=== PATIENT | female | born 1945 | race Caucasian/White ===

== ENCOUNTER 2023-08-20 06:48 | Day surgery (SDC) | payer MEDICARE, OTHER, SELFPAY ==
[2023-08-20 12:15] VITALS: BP 153/70; BMI 38.9
[2023-08-20] MEDS: TYLENOL 1000 MG PO (15:00)
[2023-08-20 16:51] VITALS: BP 105/49
[2023-08-20 17:00] VITALS: BP 118/54
[2023-08-20 17:15] VITALS: BP 123/56
== END 2023-08-20 17:30 | disposition home or self-care (01) ==
LOC: SDS 06:48
PROVIDERS: ATTENDING PHYSICIAN Orthopaedic Surgery Hand Surgery
DX: M65.332 Trigger finger, left middle finger (principal); M79.89 Other specified soft tissue disorders; Z98.890 Other specified postprocedural states
CPT/HCPCS: 26180; 88304

== ENCOUNTER → 2023-11-23 07:35 | Outpatient (REF) | payer MEDICARE, OTHER, SELFPAY | LOC: EMG 07:35 | PROVIDERS: ATTENDING PHYSICIAN Psychiatry & Neurology Neurology; FAMILY PHYSICIAN Family Medicine | DX: R26.89 Other abnormalities of gait and mobility (principal); G62.9 Polyneuropathy, unspecified | CPT/HCPCS: 95886; 95911 ==

== ENCOUNTER → 2023-12-25 13:28 | Outpatient (REF) | payer MEDICARE, OTHER, SELFPAY | LOC: MRI 13:28 | PROVIDERS: ATTENDING PHYSICIAN Psychiatry & Neurology Neurology; FAMILY PHYSICIAN Family Medicine | DX: R26.89 Other abnormalities of gait and mobility (principal); M48.02 Spinal stenosis, cervical region; R25.1 Tremor, unspecified | CPT/HCPCS: 70553; 72141; A9575 ==

== ENCOUNTER 2024-03-07 08:48 | Day surgery (SDC) | payer MEDICARE, OTHER, SELFPAY ==
--- NOTE | 2024-03-07 18:02 | ITS.CL.CARDI ---
Holter Scanning Technician - Cardioversion
Cardioversion
Procedure Report:
Date of Procedure: 03/07/2024
Procedure: Cardioversion
Indication: Symptomatic atrial fibrillation
Performing Physician: Ariadna Lin DO [facility]
Anticoagulation: Eliquis
Device: Medtronic pacemaker
Technique: The patient was brought to the holding area. Signed informed consent was obtained. A time out was called and performed. The patient was anesthetized by the anesthesia service. Anticoagulation status was reviewed and appropriate. R2 pads
were placed anteriorly and posteriorly. A 200J synchronized biphasic shock restored normal sinus rhythm without significant bradycardia confirmed by device interrogation. There were no complications.
Conclusion: Uncomplicated cardioversion from atrial fibrillation to sinus rhythm.
Recommendation: Routine post cardioversion care. Continue remote computer terminal operator anticoagulation.
== END 2024-03-07 11:10 | disposition home or self-care (01) ==
LOC: CATH 08:48
PROVIDERS: ATTENDING PHYSICIAN Internal Medicine Cardiovascular Disease; FAMILY PHYSICIAN Family Medicine; OTHER PHYSICIAN Internal Medicine Cardiovascular Disease
DX: I48.91 Unspecified atrial fibrillation (principal); Z79.01 Long term (current) use of anticoagulants
CPT/HCPCS: 92960; 93005

== ENCOUNTER → 2024-05-01 09:13 | Day surgery (SDC) | payer MEDICARE, OTHER, SELFPAY ==
--- NOTE | 2024-05-01 11:07 | ITS.CL.CARDI ---
Filler Feeder - Cardioversion
Cardioversion
Procedure Report:
Procedure: Direct current electrical cardioversion
Pre-operative diagnosis: Persistent atrial flutter
Post-operative diagnosis: Persistent atrial flutter status post DC cardioversion to sinus rhythm
Anesthesia: MAC
Attending Physician: Jono Marks MD
Procedure Description: The patient was brought to the electrophysiology laboratory in the fasting state. Adherence to anticoagulation regimen was confirmed. Informed consent was obtained from the patient prior to the start of the procedure.
Electrodes were placed on the patient and connected to an external defibrillator. Monitoring of blood pressure, ECG tracings, and pulse oximetry was initiated. The pads were applied to the patient in the anterior and posterior positions. The patient
was sedated by the anesthesiologist. A 200 joule biphasic synchronized shock was delivered to the patient under MAC anesthesia. Sinus rhythm was successfully restored. The patient recovered uneventfully from MAC anesthesia. There were no immediate
post-procedure complications. The patient left the lab in good condition. The attending physician was present throughout the entire procedure.
Impression: Successful direct current cardioversion with amish of sinus rhythm after one 200 joule biphasic synchronized shock.
== END ==
LOC: CATH 09:13
PROVIDERS: ATTENDING PHYSICIAN Internal Medicine Cardiovascular Disease; FAMILY PHYSICIAN Family Medicine; OTHER PHYSICIAN Internal Medicine Cardiovascular Disease
DX: I48.92 Unspecified atrial flutter (principal); I48.0 Paroxysmal atrial fibrillation; I11.0 Hypertensive heart disease with heart failure; I50.32 Chronic diastolic (congestive) heart failure; E78.5 Hyperlipidemia, unspecified; G47.33 Obstructive sleep apnea (adult) (pediatric); Z95.0 Presence of cardiac pacemaker; Z95.2 Presence of prosthetic heart valve; Z87.891 Personal history of nicotine dependence; Z79.01 Long term (current) use of anticoagulants
CPT/HCPCS: 92960; 93005

== ENCOUNTER → 2024-05-28 12:47 | Outpatient (REF) | payer MEDICARE, OTHER, SELFPAY | LOC: WDC 12:47 | PROVIDERS: ATTENDING PHYSICIAN Obstetrics & Gynecology Gynecology; FAMILY PHYSICIAN Family Medicine | DX: Z12.31 Encounter for screening mammogram for malignant neoplasm of breast (principal) | CPT/HCPCS: 77063; 77067 ==

== ENCOUNTER → 2024-06-10 13:06 | Outpatient (REF) | payer MEDICARE, OTHER, SELFPAY | LOC: HWRAD 13:06 | PROVIDERS: ATTENDING PHYSICIAN Student in an Organized Health Care Education/Training Program; FAMILY PHYSICIAN Family Medicine; REFERRING PHYSICIAN Podiatrist Foot & Ankle Surgery | DX: C18.9 Malignant neoplasm of colon, unspecified (principal); E55.9 Vitamin D deficiency, unspecified; M25.50 Pain in unspecified joint; M35.3 Polymyalgia rheumatica; R74.8 Abnormal levels of other serum enzymes; R76.8 Other specified abnormal immunological findings in serum; Z68.41 Body mass index [BMI] 40.0-44.9, adult; Z82.61 Family history of arthritis | CPT/HCPCS: 73630 ==

== ENCOUNTER → 2024-07-02 13:36 | Outpatient (REF) | payer MEDICARE, OTHER, SELFPAY | LOC: HWRAD 13:36 | PROVIDERS: ATTENDING PHYSICIAN Internal Medicine Critical Care Medicine; FAMILY PHYSICIAN Family Medicine; REFERRING PHYSICIAN Internal Medicine Cardiovascular Disease | DX: J90 Pleural effusion, not elsewhere classified (principal) | CPT/HCPCS: 71046 ==

== ENCOUNTER → 2024-09-19 11:30 | Outpatient (REF) | payer MEDICARE, OTHER, SELFPAY | LOC: HWRAD 11:30 | PROVIDERS: ATTENDING PHYSICIAN Student in an Organized Health Care Education/Training Program; FAMILY PHYSICIAN Family Medicine; REFERRING PHYSICIAN Obstetrics & Gynecology Gynecology | DX: M81.0 Age-related osteoporosis without current pathological fracture (principal) | CPT/HCPCS: 77080 ==

== ENCOUNTER 2024-12-04 11:56 | Inpatient (IN) | payer MEDICARE, OTHER, SELFPAY ==
[2024-12-04] VITALS (9 sets, daily range): BP systolic 132–159; BP diastolic 69–86; BMI 41.8
[2024-12-04] MEDS: TORADOL 15 MG IV (05:35)
[2024-12-04 05:38] LABS: % Basophils 0.3 % (0-2); % Eosinophils 0.6 % (0-6); % Immature Granulocytes 0.5 % (0-0.5); % Lymphocytes 8.5 % (20.5-51.1); % Monocytes 5.8 % (1.7-9.3); % Neutrophils 84.3 % (42.2-75.2); Absolute Eosinophils 0.1 10^3/uL (0-0.7); Absolute Immature Granulocytes 0.1 10^3/uL (0-0.05); Absolute Lymphocytes 1.1 10^3/uL (1.2-3.4); Absolute Monocytes 0.8 10^3/uL (0.1-0.6); Absolute Neutrophils 11.1 10^3/uL (1.4-6.5); Hematocrit 37.3 % (37.0-47.0); Mean Corp Hgb Conc. 32.2 g/dL (33.0-37.0); Mean Corpuscular Hgb 28.8 pg (27.0-31.0); Mean Corpuscular Volume 89.7 fL (81.0-99.0); Nucleated Red Blood Cells % 0 %; Platelet Count 250 10^3/uL (130-400); Red Blood Cell Count 4.16 10^6/uL (4.20-5.40); Red Cell Dist. Width 14.2 % (11.5-14.5); White Blood Cell Count 13.2 10^3/uL (4.8-10.8)
--- NOTE | 2024-12-04 05:46 | ED.GENMED ---
History of Present Illness
<Sobia Mccall, DO - Last Filed: 12/04/24 06:02>
General
Chief Complaint: Back Pain
Source: patient, ambulance crew and previous radiology exam (MRI thoracic and lumbar spine October 2022.)
Exam Limitations: none
Time Seen by Provider: 12/04/24 05:04
Nursing documentation reviewed up to this point in time: agreed with
History of Present Illness
History of Present Illness:
This is a 79-year-old woman who has history of hypertension, hyperlipidemia, pacemaker, paroxysmal atrial fibrillation chronically maintained on Eliquis. She has history of chronic neck and back pain, scoliosis, sciatica, follows with pain
management and is maintained on as needed hydrocodone for which she generally takes only once perhaps twice per day. She is also maintained on Lyrica.
She is history of bilateral total knee replacements, left total hip replacement, follows with Dr. Marcial.
More recently she has been suffering with right knee pain reports patellar tendon tear of the right knee several months ago with chronic swelling of her right knee for at least the past 2 to 3 months. Despite 5 weeks of physical therapy, no
improvement in right knee pain and swelling thus physical therapy was discontinued perhaps 4 weeks ago and recommended to rest her knee, placed in a knee immobilizer 3 weeks ago which she has been faithful with and ambulating with a walker until
yesterday when she self discontinued the knee immobilizer.
Last night, while attempting to get up from her recliner, she developed acute severe pain to her right thigh radiating from her right hip to her right knee as well as radiating to her lower back. She denies fall, denies feeling a sense of pop nor
pull, and has been ambulatory with help of a walker and her but marked difficulty with ambulation, marked difficulty sitting down and then getting back up from the toilet last night. Again she has not had a fall, no difficulty moving her
bowels or bladder. She states her right leg feels as if it is heavy, difficulty lifting it. She denies numbness.
Previous MRI of her thoracic and lumbar spine October 2022 showing multilevel DJD of the lumbar spine as well as spinal stenosis, moderately progressed from previous MRI 2020. Mild DJD of thoracic spine, minimally progressed from previous.
Prior epidural steroid injection over 1 year ago�patient states were ineffective.
She took a dose of hydrocodone at 6 PM and then again at 3 AM without significant relief.
She arrives via EMS.
Right leg and back pain are much worse with attempted movement and any position. She denies abdominal pain. No nausea no vomiting, no diarrhea or constipation. She has not had a fever nor chills.
Chronically maintained on Eliquis and has been compliant with twice daily dosing.
Past History
<Sobia Mccall DO - Last Filed: 12/04/24 06:02>
Past History
ED Past Medical History: Arrthythmia (Atrial fibrillation), Asthma, CAD, Cancer (Colon cancer 2007), HTN, Other (Neuropathy from chemotherapy, left hip avascular necrosis, constipation, dropped bladder, ambulatory dysfunction, skin cancer,
depression) and Other (Cervical as well as lumbar DJD, scoliosis, sciatica); Negative Hypercholesterolemia
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
Bilateral total knee replacements) and Other (Surgery for deviated septum)
Social History
Tobacco: Non-smoker
Alcohol: None
Personal:
Living: with family
Employment: Retired
Family History
Family History: Other (Noncontributory)
Phy Exam
<Sobia Mccall DO - Last Filed: 12/04/24 06:02>
Physical Exam
Physical Exam:
GENERAL: 79-year-old overweight female appears her stated age, awake and alert, pleasant, appears in mild distress. Intermittently yelling out pain with attempted movement.
EYE: pupils equal. anicteric
NECK: Supple, nontender, no meningismus, no significant adenopathy.
ENT: oral mucosa is moist. No rhinorrhea.
CARDIAC: Regular rate and rhythm. no murmur.
LUNGS: Clear breath sounds bilaterally, no acute respiratory distress, no wheezes/rales/rhonchi
ABDOMEN: Rotund, soft, nondistended, without focal tenderness, no r/g, no cvat. normoactive BS.
BACK: Mild to moderate global tenderness about the lower back. No tenderness to the thoracic spine. Mild to moderate tenderness right posterior to lateral hip. No gross deformity. Limited range of motion of lumbar spine as well as right lower
extremity related to pain.
NEUROLOGICAL: Alert and oriented x3, no focal neuro deficits. Gross sensation intact bilateral lower extremities. Patient resistant to move her right lower extremity however dorsiflexion/plantarflexion of feet intact and equal bilaterally.
SKIN: Warm and dry, normal color, skin intact. No rash.
MUSCULOSKELETAL: No C/C/E. There is mild global effusion of right knee without erythema nor ecchymosis. Patient states right knee swelling has been unchanged over the past 6 to 8 weeks. There is moderate global tenderness about the right knee,
moderate global tenderness about the medial posterior thigh as well as moderate global tenderness about the right hip and right low back. There is no rash. Markedly limited active range of motion of right hip and right knee and patient is markedly
resistant to passive range of motion of her right knee and right hip. There is no deformity, no crepitus. Peripheral pulses are full and equal b/l.
PSYCH: Normal and appropriate interaction.
Course
<Sobia Mccall, DO - Last Filed: 12/04/24 06:02>
Orders/Labs/Results
Orders:
Orders
12/04/24 05:24
Ketorolac [Toradol] 15 mg IV NOW STA
12/04/24 05:25
CR Knee - Right 1 Or 2 Views Urgent
Reason For Exam: severe R knee pain tonight. hx chronic R knee pn
CR Lumbar Spine 2 Or 3 Views Urgent
Reason For Exam: low backpain after getting out of chair last night
Hip, Right 2-3 Views [CR Hip - RT w/wo Pel 2-3 Vw*] Urgent
Comment:
Reason For Exam: severe R hip pain getting out of chair last night
Include a pelvis x-ray?: Yes
12/04/24 05:31
Basic Metabolic Panel Urgent
Complete Blood Count/With Diff Urgent
12/04/24 08:46
CT Pelvis W/o Iv Contrast Urgent
Comment:
Reason For Exam: right hip pain
HYDROmorphone [Dilaudid] 0.5 mg IV NOW STA
12/04/24 09:41
ORTHOPEDIC CONSULT Urgent
Consulting Provider: Maria C Momin I.
Was physician already notified: Yes
12/04/24 Lunch
Regular
At Your Request: Full Participation
Does patient need a safe tray?: No
12/04/24 10:52
Admit/Transfer Patient As Directed
Co-Sign Provider:
Level of Care: Inpatient admission
Assign to:: Telemetry
Physician / Group:
Diagnosis: R femoral neck fracture
Reason for Telemetry: Arrhythmia
Date to Stop Telemetry: 12/07/24
Time to Stop Telemetry: 11:00
Reason for Hospitalization: R femoral neck fracture
Expected length of stay greater than two midnights?: Yes
ELOS- Estimated Length of Stay in days: 3
I certify the patient meets the requirements for IP care: Yes
12/04/24 10:53
PRN Pain Medication Management As Directed
May give lesser potent ordered pain med per pt: Yes
preference::
Protocol:: Medication orders for pain may be administered in a
manner that supports deferring to patient preference
when the pt is:
- Requesting an ordered lesser potent pain medication.
Least to most potent pain medications are defined
as: acetaminophen < NSAID < tramadol < opioids
(morphine, oxycodone, hydromorphone).
- Requesting a lesser dose of the same medication IF
ORDERED.
- Requesting a less intrusive route of administration
if both routes are prescribed by the provider (PO <
IV).
12/04/24 10:59
Code Status As Directed
Resuscitation Status: Full Code
12/04/24 11:34
EKG [Electrocardiogram (*1)] Routine
Reason for Study: PreOp
12/04/24 12:50
Acetaminophen [Tylenol] 650 mg PO Q4HPRN PRN
Albuterol [ProAIR HFA INHALER] 2 puff INH R Q4HPRN PRN
Amiodarone [Pacerone] 100 mg PO DAILY
Bisacodyl [Dulcolax] 10 mg RECTAL [id number] PRN
Docusate W/Senna [Senokot-S] 1 tablet PO BIDPRN PRN
HYDROmorphone [Dilaudid] 0.5 mg IV Q4HPRN PRN
Lidocaine [Lidocaine 4% Patch] 2 patch TOPICAL DAILYPRN PRN
Apply Lidocaine patch(s) to:: lower back, RIGHT LEG
Lorazepam [Ativan] 1 mg PO HSPRN PRN
Oxycodone [Roxicodone] 5 mg PO Q4HPRN PRN
Polyethylene Glycol Powder [Miralax] 17 grams PO DAILYPRN PRN
[id number]-[id number]-[id number] [Trelegy Ellipta] 1 inh INH R DAILY
12/04/24 12:50
Activity As Directed
Activity Level: As Tolerated
Pneumatic Compression Sleeves As Directed
Type: Knee high
Vital Signs As Directed
Frequency: Per unit guidelines
DX Deep Vein Thrombosis Video Routine
12/04/24 13:00
Duloxetine Delayed Release [Cymbalta Delayed Release] 90 mg PO DAILY
12/04/24 16:00
Pregabalin [Lyrica] 75 mg PO TID
12/04/24 18:00
Atorvastatin [Lipitor] 10 mg PO QPM
12/04/24 22:00
Aripiprazole [Abilify] 2 mg PO HS
Cetirizine HCl [Zyrtec] 5 mg PO HS
Montelukast Sodium [Singulair] 10 mg PO HS
Tizanidine [Zanaflex] 4 mg PO HS
12/05/24 06:00
Basic Metabolic Panel IN AM
Complete Blood Count/No Diff IN AM
Levothyroxine [Synthroid] 150 mcg PO MoTuWeThFr@0600
12/05/24 08:00
Cyanocobalamin [Vitamin B-12] 1,000 mcg PO DAILY
Furosemide [Lasix] 40 mg PO DAILY
12/06/24 06:00
Basic Metabolic Panel IN AM
Complete Blood Count/No Diff IN AM
Levothyroxine [Synthroid] 300 mcg PO SuSa@0600
12/07/24 06:00
Basic Metabolic Panel IN AM
Complete Blood Count/No Diff IN AM
12/07/24 11:00
DC Protocol for Telemetry ONCE
12/08/24 06:00
Basic Metabolic Panel IN AM
Complete Blood Count/No Diff IN AM
12/09/24 06:00
Basic Metabolic Panel IN AM
Complete Blood Count/No Diff IN AM
12/10/24 06:00
Basic Metabolic Panel IN AM
Complete Blood Count/No Diff IN AM
12/11/24 06:00
Basic Metabolic Panel IN AM
Complete Blood Count/No Diff IN AM
Abnormal Lab Results
12/04/24
05:31
WBC 13.2 H 10^3/uL
(4.8-10.8)
RBC 4.16 L 10^6/uL
(4.20-5.40)
MCHC 32.2 L g/dL
(33.0-37.0)
Abs Immat Gran (auto) 0.1 H 10^3/uL
(0-0.05)
Absolute Neuts (auto) 11.1 H 10^3/uL
(1.4-6.5)
Absolute Lymphs (auto) 1.1 L 10^3/uL
(1.2-3.4)
Absolute Monos (auto) 0.8 H 10^3/uL
(0.1-0.6)
Neutrophils % 84.3 H %
(42.2-75.2)
Lymphocytes % 8.5 L %
(20.5-51.1)
Sodium 134 L mmol/L
(135-145)
Glucose 119 H mg/dl
(70-99)
Calcium 10.5 H mg/dl
(8.4-10.2)
12/04/24 05:31
12/04/24 05:31
Vital Signs
Initial and Last Documented VS:
Initial Vital Signs
Temp Pulse Resp BP Pulse Ox
36.6 C 61 14 157/78 96
12/04/24 05:05 12/04/24 05:05 12/04/24 05:05 12/04/24 05:05 12/04/24 05:05
Last Documented Vital Signs
Temp Pulse Resp BP Pulse Ox
36.9 C 64 20 159/83 94
12/04/24 14:13 12/04/24 14:13 12/04/24 14:13 12/04/24 14:13 12/04/24 14:13
<Ancelmo John MD - Last Filed: 12/04/24 15:37>
Orders/Labs/Results
Orders:
Orders
12/04/24 05:24
Ketorolac [Toradol] 15 mg IV NOW STA
12/04/24 05:25
CR Knee - Right 1 Or 2 Views Urgent
Reason For Exam: severe R knee pain tonight. hx chronic R knee pn
CR Lumbar Spine 2 Or 3 Views Urgent
Reason For Exam: low backpain after getting out of chair last night
Hip, Right 2-3 Views [CR Hip - RT w/wo Pel 2-3 Vw*] Urgent
Comment:
Reason For Exam: severe R hip pain getting out of chair last night
Include a pelvis x-ray?: Yes
12/04/24 05:31
Basic Metabolic Panel Urgent
Complete Blood Count/With Diff Urgent
12/04/24 08:46
CT Pelvis W/o Iv Contrast Urgent
Comment:
Reason For Exam: right hip pain
HYDROmorphone [Dilaudid] 0.5 mg IV NOW STA
12/04/24 09:41
ORTHOPEDIC CONSULT Urgent
Consulting Provider: Maria C Momin I.
Was physician already notified: Yes
12/04/24 Lunch
Regular
At Your Request: Full Participation
Does patient need a safe tray?: No
12/04/24 10:52
Admit/Transfer Patient As Directed
Co-Sign Provider:
Level of Care: Inpatient admission
Assign to:: Telemetry
Physician / Group:
Diagnosis: R femoral neck fracture
Reason for Telemetry: Arrhythmia
Date to Stop Telemetry: 12/07/24
Time to Stop Telemetry: 11:00
Reason for Hospitalization: R femoral neck fracture
Expected length of stay greater than two midnights?: Yes
ELOS- Estimated Length of Stay in days: 3
I certify the patient meets the requirements for IP care: Yes
12/04/24 10:53
PRN Pain Medication Management As Directed
May give lesser potent ordered pain med per pt: Yes
preference::
Protocol:: Medication orders for pain may be administered in a
manner that supports deferring to patient preference
when the pt is:
- Requesting an ordered lesser potent pain medication.
Least to most potent pain medications are defined
as: acetaminophen < NSAID < tramadol < opioids
(morphine, oxycodone, hydromorphone).
- Requesting a lesser dose of the same medication IF
ORDERED.
- Requesting a less intrusive route of administration
if both routes are prescribed by the provider (PO <
IV).
12/04/24 10:59
Code Status As Directed
Resuscitation Status: Full Code
12/04/24 11:34
EKG [Electrocardiogram (*1)] Routine
Reason for Study: PreOp
12/04/24 12:50
Acetaminophen [Tylenol] 650 mg PO Q4HPRN PRN
Albuterol [ProAIR HFA INHALER] 2 puff INH R Q4HPRN PRN
Amiodarone [Pacerone] 100 mg PO DAILY
Bisacodyl [Dulcolax] 10 mg RECTAL [id number] PRN
Docusate W/Senna [Senokot-S] 1 tablet PO BIDPRN PRN
HYDROmorphone [Dilaudid] 0.5 mg IV Q4HPRN PRN
Lidocaine [Lidocaine 4% Patch] 2 patch TOPICAL DAILYPRN PRN
Apply Lidocaine patch(s) to:: lower back, RIGHT LEG
Lorazepam [Ativan] 1 mg PO HSPRN PRN
Oxycodone [Roxicodone] 5 mg PO Q4HPRN PRN
Polyethylene Glycol Powder [Miralax] 17 grams PO DAILYPRN PRN
vhegrmcrzzf-strsuvxkk-ogfldito [Trelegy Ellipta] 1 inh INH R DAILY
12/04/24 12:50
Activity As Directed
Activity Level: As Tolerated
Pneumatic Compression Sleeves As Directed
Type: Knee high
Vital Signs As Directed
Frequency: Per unit guidelines
DX Deep Vein Thrombosis Video Routine
12/04/24 13:00
Duloxetine Delayed Release [Cymbalta Delayed Release] 90 mg PO DAILY
12/04/24 16:00
Pregabalin [Lyrica] 75 mg PO TID
12/04/24 18:00
Atorvastatin [Lipitor] 10 mg PO QPM
12/04/24 22:00
Aripiprazole [Abilify] 2 mg PO HS
Cetirizine HCl [Zyrtec] 5 mg PO HS
Montelukast Sodium [Singulair] 10 mg PO HS
Tizanidine [Zanaflex] 4 mg PO HS
12/05/24 06:00
Basic Metabolic Panel IN AM
Complete Blood Count/No Diff IN AM
Levothyroxine [Synthroid] 150 mcg PO MoTuWeThFr@0600
12/05/24 08:00
Cyanocobalamin [Vitamin B-12] 1,000 mcg PO DAILY
Furosemide [Lasix] 40 mg PO DAILY
12/06/24 06:00
Basic Metabolic Panel IN AM
Complete Blood Count/No Diff IN AM
Levothyroxine [Synthroid] 300 mcg PO SuSa@0600
12/07/24 06:00
Basic Metabolic Panel IN AM
Complete Blood Count/No Diff IN AM
12/07/24 11:00
DC Protocol for Telemetry ONCE
12/08/24 06:00
Basic Metabolic Panel IN AM
Complete Blood Count/No Diff IN AM
12/09/24 06:00
Basic Metabolic Panel IN AM
Complete Blood Count/No Diff IN AM
12/10/24 06:00
Basic Metabolic Panel IN AM
Complete Blood Count/No Diff IN AM
12/11/24 06:00
Basic Metabolic Panel IN AM
Complete Blood Count/No Diff IN AM
Abnormal Lab Results
12/04/24
05:31
WBC 13.2 H 10^3/uL
(4.8-10.8)
RBC 4.16 L 10^6/uL
(4.20-5.40)
MCHC 32.2 L g/dL
(33.0-37.0)
Abs Immat Gran (auto) 0.1 H 10^3/uL
(0-0.05)
Absolute Neuts (auto) 11.1 H 10^3/uL
(1.4-6.5)
Absolute Lymphs (auto) 1.1 L 10^3/uL
(1.2-3.4)
Absolute Monos (auto) 0.8 H 10^3/uL
(0.1-0.6)
Neutrophils % 84.3 H %
(42.2-75.2)
Lymphocytes % 8.5 L %
(20.5-51.1)
Sodium 134 L mmol/L
(135-145)
Glucose 119 H mg/dl
(70-99)
Calcium 10.5 H mg/dl
(8.4-10.2)
12/04/24 05:31
12/04/24 05:31
Vital Signs
Initial and Last Documented VS:
Initial Vital Signs
Temp Pulse Resp BP Pulse Ox
36.6 C 61 14 157/78 96
12/04/24 05:05 12/04/24 05:05 12/04/24 05:05 12/04/24 05:05 12/04/24 05:05
Last Documented Vital Signs
Temp Pulse Resp BP Pulse Ox
36.9 C 64 20 159/83 94
12/04/24 14:13 12/04/24 14:13 12/04/24 14:13 12/04/24 14:13 12/04/24 14:13
<Sobia Mccall DO - Last Filed: 12/04/24 06:02>
MDM/Problems Addressed
Differential Diagnosis Includes:
Concern for acute sciatica, concern for acute on chronic low back pain/strain, concern for acute hip strain/sprain, acute piriformis muscle strain, acute on chronic right knee pain/strain.
Patient has not had a fall, acute fracture is much less likely but certainly conceivable.
No recent instrumentation and denies trauma thus acute hematoma/infectious process are unlikely.
Will give a one-time dose of IV Toradol and plan for x-ray of lumbar spine, right hip and knee.
Will check routine labs.
Chronic conditions affecting care: Arrhythmia, Neurological disorder and Other (Cervical/lumbar DJD, osteoarthritis, bilateral total knee replacements)
<Ancelmo John MD - Last Filed: 12/04/24 15:37>
*Critical Care Note
Total Time (30-74mins, 75-104mins- exclusive of procedures): Not Applicable
<Ancelmo John MD - Last Filed: 12/04/24 15:37>
Update Note
Update Note:
UPDATE (Ancelmo John MD)
I have seen and evaluated the patient after signout and reviewed all labs and imaging.
Focused HPI: 79-year-old female with history as noted presents for evaluation of right hip pain. Patient has been following with Dr. Marcial for chronic issues in her knees; most recently was placed in a knee immobilizer due to a flare of right
knee pain. She removed it due to soreness in the right hip 2 days ago and then last night when she was getting up out of her chair had acute worsening of right hip pain to the point that she could not bear weight and came to the ER. No falls or
other trauma noted.
Physical exam: Awake alert, appears uncomfortable. Vital signs normal. Tenderness along the greater trochanter and pain with any attempts at range of motion of the right hip. Her hip is slightly externally rotated but not shortened. Good pulses
throughout the right lower extremity.
Medical Decision Makin-year-old female presented with right hip pain as described above. X-ray appears to show right hip fracture. Discussed case with orthopedics for consultation�she is known to Dr. Marcial and so [facility] orthopedics
was consulted. CT of the right hip. Admit to hospitalist service. Discussed with hospitalist.
ED Attending Note
<Sobia Mccall DO - Last Filed: 12/04/24 06:02>
-
Portions of this chart may have been created with voice recognition software.� Occasional wrong word or��sound alike� substitutions may have occurred due to the inherent limitations of voice recognition software.
Discharge Plan
Departure
Patient Disposition: Admit
Date of Disposition: 12/04/24
Time of Disposition: 09:49
Admit to doctor: Leo
Presentation/result/management discussed w/ accepting MD/DO: Hospitalist
Discharge Problem:
Closed fracture of right hip
Interventions
Interventions:
*Risk Screen - Suicide Last Done: 12/04/24 05:05
*General Assessment Last Done: 12/04/24 05:05
*Neglect/Abuse Screening Last Done: 12/04/24 05:05
*ED- Fall Risk Assessment Last Done: 12/04/24 05:13
*ED COVID-19 Vaccine History Last Done: 12/04/24 05:13
*Nursing Disposition Last Done: 12/04/24 13:07
ED-Musculoskeletal Assessment Last Done: 12/04/24 05:18
Discharge Date and Time
Discharge Date/Time: 12/04/24 13:07
[2024-12-04 06:08] LABS: Blood Urea Nitrogen 15 mg/dl (7-17); Calcium 10.5 mg/dl (8.4-10.2); Carbon Dioxide 30 mmol/L (22-30); Chloride 101 mmol/L (98-107); Estimated Creatinine Clearance 82 ml/min; Glucose 119 mg/dl (70-99); Potassium 4.3 mmol/L (3.5-5.1); Sodium 134 mmol/L (135-145); eGFR > 60.00
[2024-12-04] MEDS: DILAUDID 0.5 MG IV ×4 (09:29→22:15)
--- NOTE | 2024-12-04 10:27 | HPS.HSE ---
Addendum entered and electronically signed by Erna Bañuelos MD 12/04/24 13:51:
I personally performed a history and physical exam of the patient and discussed management with the resident. I reviewed the resident's note and agree with the documented findings and plan of care HPI/CC.
GENERAL: well developed, well nourished, obese female in no apparent distress
HEENT: NC/AT
HEART: regular rate and rhythm, +S1, +S2, JOSE
LUNGS : clear to auscultation bilaterally
ABDOM: soft, nontender, nondistended, + bowel sounds
EXT: no cyanosis, clubbing, or edema--right leg slightly short and externally rotated
NEUROLOGIC: grossly intact
: purewick in place clear urine
right femoral fracture--nontraumatic--likely exacerbated by compensatory ambulation from right knee pain (with knee immobilizer) due to right patellar tendon tear--ADMIT--consult ortho--hold eliquis--pain control--check EKG--pt for surgery
Sunday--no concerns to stop or postpone surgery
Cervical and Lumbar DJD- Lumbar spine x-ray today: Moderate to severe multilevel degenerative changes of the lumbar spine-- pt is hydrocodone w/acetaminophen OP-- will hold- will start oxy/IV dilaudid- continue lidocaine patches for lower back
Paroxysmal Afib with pacemaker- Hx of cardioversion in 2023- follows with Dr.Renee Botello OP- Continue amiodarone� Eliquis hold pending orthopedic procedure
Essential HTN- continue home medications amlodipine and lisinopril with holding parameters- Continue lasix for peripheral edema
Hypothyroidism- continue home medications
Hyperlipidemia-continue statin
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
Depression/Anxiety-continue home medications duloxetine, Abilify--home dose Ativan will be changed to HS PRN due to multiple pain meds
DVT proph-- SCDs - eliquis on hold
code status--FULL CODE
Original Note:
Family Physician
-
Family Physician: Dr. Maria C Tolentino
Chief Complaint
-
Right hip pain
History of Present Illness
This is a 79-year-old female patient with PMH of A-fib on Eliquis and pacemaker, cervical/lumbar DJD, hypothyroidism, Hx of colon cancer and previous Hx of bilateral TKR and left hip replacement who presented to the ED with concerns of right hip
pain. She states that she has been experiencing right knee pain over the past few months and was found to have right knee patellar tendon tear. She follows with Dr. Marcial outpatient. She was recently placed on a knee immobilizer 3 weeks ago due
to a flareup of pain in her right knee and had used a walker to ambulate. She normally uses a cane to walk. Over the weekend, she states that she had removed her immobilizer due to her concern of increased right hip soreness/discomfort. She was
managing okay since then with a walker until last night when she tried getting out of her recliner and suddenly experienced a large amount of pain in her right hip. She was able to slowly walk toward her bed to lie down which aggravated her right
hip and tried to use ice packs to alleviate. Due to her increasing discomfort/pain, she had decided to arrive to the hospital. She denies any history of falls, chest pain, shortness of breath or dizziness.
Upon arrival to the ED, CT pelvis was done which showed a right femoral fracture.
Medical History
Past Medical History
Past Medical History: Reports Arrhythmia (afib on Eliquis), Asthma, CAD, Cancer (colon cancer 2007), HTN, Hypercholesterolemia, Hypothyroidism and Other (Neuropathy from chemo, depression, ambulatory dysfunction, cervical and lumbar DJD, left hip
avascular necrosis, skin cancer )
Past Surgical History: Reports Bowel Resection (Sigmoidectomy for cancer of the bowel), Cardiac (pacemaker 2020), Gynocological (L fallopian tube removal), Orthopedic (Arthroscopy of left knee, repair of fractured left wrist, left hip replacement
from a vascular necrosis. Bilateral total knee replacements) and Other (spinal fusion surgery)
Social History
Tobacco: Former Smoker (smoked 15 years 1-2 packs/day, quit at 32yo)
Alcohol: None
Personal:
Living: With Family
Family History
Family History: Not pertinent
Allergies / Home Medications
Allergies reflects when Allergies were last updated in [employer].
Home Medications with original date entered in [employer]
Allergy/Medication List:
Allergies
Allergy/AdvReac Type Severity Reaction Status Date / Time
ampicillin Allergy Rash Verified 12/04/24 05:05
atenolol Allergy 'Asthma Verified 12/04/24 05:05
attack'wheezing,
swelling
of lips
and tongue
cephalexin monohydrate Allergy Swelling Verified 12/04/24 05:05
[From Keflex] of tongue
& lips
Cephalosporins Allergy swelling Verified 12/04/24 05:05
tongue,
lips
erythromycin base Allergy irritable Verified 12/04/24 05:05
GI, upset
stomach
esomeprazole magnesium Allergy upset Verified 12/04/24 05:05
[From Nexium] stomach -
nausea and
vomiting
pantoprazole sodium Allergy nausea and Verified 12/04/24 05:05
[From Protonix] vomitting
penicillin V Allergy Rash Verified 12/04/24 05:05
Penicillins Allergy Rash Verified 12/04/24 05:05
pollen extracts Allergy SEASONAL Verified 12/04/24 05:05
ALLERGIES
kenalog cortisone shot AdvReac whole body Uncoded 12/04/24 05:05
turned red
& hot/rash
ran up arm
& down
torso
Home Medications
lorazepam 1 mg tablet 1 mg PO HS anxiety 02/09/16
pregabalin 50 mg capsule 50 mg PO BID leg Pain 02/09/16
pregabalin 75 mg capsule 75 mg PO TID leg Pain 02/09/16
levocetirizine 5 mg tablet (Xyzal) 5 mg PO HS Allergies 08/03/17
montelukast 10 mg tablet 10 mg PO HS Allergies 10/19/20
apixaban 5 mg tablet (Eliquis) 5 mg PO BID Blood clot prevention/tx 11/24/20
albuterol sulfate 90 mcg/actuation aerosol inhaler 2 puff inhalation R Q4HPRN PRN sob 12/17/20
aripiprazole 2 mg tablet 2 mg PO HS Mental Health/Anxiety 12/17/20
duloxetine 60 mg capsule,delayed release 90 mg PO DAILY Neurological Condition 12/17/20
levothyroxine 150 mcg tablet 150 mcg PO MOTUWETHFR Thyroid 12/17/20
lisinopril 5 mg tablet 5 mg PO DAILY 10/30/22
linaclotide 72 mcg capsule (Linzess) 72 mcg PO DAILYPRN PRN constipation 02/28/23
amlodipine 5 mg tablet 2.5 mg PO DAILY 08/16/23
furosemide 40 mg tablet 40 mg PO DAILY 03/07/24
tizanidine 4 mg tablet 4 mg PO HS 03/07/24
Medical Marijuana Cream 1 applic topical HS both feet 12/04/24
amiodarone 200 mg tablet (Pacerone) 100 mg PO DAILY 12/04/24
oohpgijtzu-lvwvnqcbrwlyj-xvzdabim 50 mg-325 mg-40 mg tablet 1 tab PO Q6HPRN PRN headaches 12/04/24
calcium carbonate 500 mg PO DAILY 12/04/24
cyanocobalamin (vitamin B-12) 1,000 mcg tablet 1,000 mcg PO DAILY 12/04/24
fluticasone fur. 200 mcg-umeclid 62.5 mcg-vilant 25 mcg inhalat.powder (Trelegy Ellipta) 1 inh inhalation R DAILY 12/04/24
hydrocodone 5 mg-acetaminophen 325 mg tablet 1 tab PO BIDPRN PRN severe pain 12/04/24
levothyroxine 150 mcg tablet (Synthroid) 300 mcg PO SUSA 12/04/24
lidocaine 5 % topical patch 1 patch topical DAILYPRN PRN lower back, right leg 12/04/24
simvastatin 10 mg tablet (Zocor) 10 mg PO QPM 12/04/24
Review of Systems
-
A 12 point ROS was completed and negative except as noted: Yes
Musculoskeletal: Reports Joint Pain (R hip pain)
Physical Exam
Vital Signs
Vital Signs
Temp Pulse Resp BP Pulse Ox
97.8 F 62 18 148/84 95
12/04/24 05:05 12/04/24 09:00 12/04/24 09:00 12/04/24 09:00 12/04/24 05:13
Physical Exam
General: Pain and Morbidly Obese
HEENT: NormoCephalic and Anicteric
Respiratory: Clear
Cardiac: S1/S2 and Regular Rhythm; No Murmur
GI: Soft, Non Tender and Non Distended
Musculoskeletal: Other (moderate tenderness in R hip region, mild tenderness, swelling present R knee )
Skin: Warm and Dry
Neuro: Awake, Alert and Oriented
Laboratory Results
-
12/04/24 05:31
12/04/24 05:31
Impression/Plan
-
IMPRESSION: This is a 79-year-old female patient with PMH of A-fib on Eliquis and pacemaker, cervical/lumbar DJD, hypothyroidism, Hx of colon cancer and previous Hx of bilateral TKR and left hip replacement who presented to the ED with concerns of
right hip pain.
PLAN:
# Atraumatic right femoral fracture
#Right knee pain due to right pateller tendon tear
- CT pelvis: Right femoral neck fracture
- orthopedics consulted (follows with OP)
- anticoagulation Eliquis held pending orthopedic procedure for R hip
- Will initiate pain management regiment (oxy/IV dilaudid)
- Patient will be n.p.o. on Sunday night
- EKG ordered-surgical clearance pending
#Cervical and Lumbar DJD
- Lumbar spine x-ray today: Moderate to severe multilevel degenerative changes of the lumbar spine.
- pt is hydrocodone w/acetominophen OP-- will hold
- will start oxy/IV dilaudid
- continue lidocaine patches for lower back
# Paroxysmal Afib with pacemaker
- Hx of cardioversion in 2023
- follows with Dr.Renee Plaza OP
- Continue amiodarone
� Eliquis hold pending orthopedic procedure
#Essential HTN
- continue home medications amlodipine and lisinopril
- holding parameters
- Continue lasix for peripheral edema
# Hypothyroidism
- continue home medications
#Hyperlipidemia
-continue statin
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
-continue lyrica
#Depression/Anxiety
-continue home medications duoloxetine, abilify
- home dose ativan will be changed to HS PRN due to multiple pain meds
DVT ppx- SCDs - eliquis on hold
FULL CODE
--- NOTE | 2024-12-04 12:30 | CON.ORTHO ---
Consultation
-
Date/Time Consultation Requested: 12/04/24 @10am
Date/Time Consultation Performed: 12/04/24 @12:15pm
Requesting Provider: ER provider
Performing Provider: Xiomara Valencia PA-C
Reason for Consultation: right hip fracture
Consultation - Orthopedics
History
79yo female presents to [facility] for right hip pain. She reports gradual pain over the past few weeks however last night she had severe pain and inability to ambulate. She is known to [facility] orthopedics for multiple total joint
replacements. She recently has been dealing with right knee pain. She has patella daniel and was in a knee immobilizer. She was evaluated as an outpatient two weeks ago and was gradually progressing. She denies any fall. She believes the hip pain was
from the knee immobilizer and the use of her walker. She denies pain elsewhere. She does take Eliquis and her last dose was at 6pm 12/03/24. She is resting comfortably in bed currently but reports significant pain with any movement of the right leg.
PAST MEDICAL HISTORY: HTN, HLD, CAD, Afib on Eliquis, chronic neck and back pain, scoliosis, sciatica, history of colon cancer, anxiety
PAST SURGICAL HISTORY: bilateral TKA with Dr. Marcial, left GLEN with Dr. Marcial, bowel resection, [employer] history teacher surgery, left wrist ORIF, surgery for deviated septum, pacemaker placement
SOCIAL HISTORY: denies tobacco, alcohol
FAMILY HISTORY: Noncontributory
REVIEW OF SYSTEMS: 12 point review of systems obtained and negative except those mentioned in the HPI
Allergies / Home Medications
Allergy/AdvReac Type Severity Reaction Status Date / Time
ampicillin Allergy Rash Verified 12/04/24 05:05
atenolol Allergy 'Asthma Verified 12/04/24 05:05
attack'wheezing,
swelling
of lips
and tongue
cephalexin monohydrate Allergy Swelling Verified 12/04/24 05:05
[From Keflex] of tongue
& lips
Cephalosporins Allergy swelling Verified 12/04/24 05:05
tongue,
lips
erythromycin base Allergy irritable Verified 12/04/24 05:05
GI, upset
stomach
esomeprazole magnesium Allergy upset Verified 12/04/24 05:05
[From Nexium] stomach -
nausea and
vomiting
pantoprazole sodium Allergy nausea and Verified 12/04/24 05:05
[From Protonix] vomitting
penicillin V Allergy Rash Verified 12/04/24 05:05
Penicillins Allergy Rash Verified 12/04/24 05:05
pollen extracts Allergy SEASONAL Verified 12/04/24 05:05
ALLERGIES
kenalog cortisone shot AdvReac whole body Uncoded 12/04/24 05:05
turned red
& hot/rash
ran up arm
& down
torso
�Medication �Instructions �Recorded
lorazepam 1 mg tablet 1 mg PO HS anxiety 02/09/16
pregabalin 50 mg capsule 50 mg PO BID leg Pain 02/09/16
pregabalin 75 mg capsule 75 mg PO TID leg Pain 02/09/16
levocetirizine 5 mg tablet (Xyzal) 5 mg PO HS Allergies 08/03/17
montelukast 10 mg tablet 10 mg PO HS Allergies 10/19/20
apixaban 5 mg tablet (Eliquis) 5 mg PO BID Blood clot 11/24/20
prevention/tx
albuterol sulfate 90 mcg/actuation 2 puff inhalation R Q4HPRN PRN sob 12/17/20
aerosol inhaler
aripiprazole 2 mg tablet 2 mg PO HS Mental Health/Anxiety 12/17/20
duloxetine 60 mg capsule,delayed 90 mg PO DAILY Neurological 12/17/20
release Condition
levothyroxine 150 mcg tablet 150 mcg PO MOTUWETHFR Thyroid 12/17/20
lisinopril 5 mg tablet 5 mg PO DAILY 10/30/22
linaclotide 72 mcg capsule 72 mcg PO DAILYPRN PRN constipation 02/28/23
(Linzess)
amlodipine 5 mg tablet 2.5 mg PO DAILY 08/16/23
furosemide 40 mg tablet 40 mg PO DAILY 03/07/24
tizanidine 4 mg tablet 4 mg PO HS 03/07/24
Medical Marijuana Cream 1 applic topical HS both feet 12/04/24
amiodarone 200 mg tablet (Pacerone) 100 mg PO DAILY 12/04/24
lafrltyusm-hkzzwsmuxbenq-nyeapjtn 1 tab PO Q6HPRN PRN headaches 12/04/24
50 mg-325 mg-40 mg tablet
calcium carbonate 500 mg PO DAILY 12/04/24
cyanocobalamin (vitamin B-12) 1,000 mcg PO DAILY 12/04/24
1,000 mcg tablet
fluticasone fur. 200 mcg-umeclid 1 inh inhalation R DAILY 12/04/24
62.5 mcg-vilant 25 mcg
inhalat.powder (Trelegy Ellipta)
hydrocodone 5 mg-acetaminophen 325 1 tab PO BIDPRN PRN severe pain 12/04/24
mg tablet
levothyroxine 150 mcg tablet 300 mcg PO SUSA 12/04/24
(Synthroid)
lidocaine 5 % topical patch 1 patch topical DAILYPRN PRN lower 12/04/24
back, right leg
simvastatin 10 mg tablet (Zocor) 10 mg PO QPM 12/04/24
Vital Signs / Lab Results
Temp Pulse Resp BP Pulse Ox
97.8 F 60 15 148/84 95
12/04/24 05:05 12/04/24 11:57 12/04/24 11:57 12/04/24 09:00 12/04/24 05:13
12/04/24 05:31
12/04/24 05:31
RADIOGRAPHIC FINDINGS:
Xray right hip shows right femoral neck fracture
CT Scan pelvis shows minimally displaced right femoral neck fracture
PHYSICAL EXAM:
General: no acute distress
HEENT: NCAT, sclera anicteric, normal hearing
Heart: No JVD
Lungs: normal work of breathing on room air
MSK: Right left shortened and externally rotated. +TTP over lateral hip. thigh soft and compressible. +Log roll. calf soft and nontender. able to plantarflex/dorsiflex the ankle. NVI distally.
Assessment / Plan
ASSESSMENT: 79yo female with minimally displaced femoral neck fracture
PLAN: Unfortunately, Ms. Muhammad has sustained a right femoral neck fracture. Recommend surgical fixation of this fracture. Treatment options were discussed with the patient and family at bedside in ED. She would like to consider total hip
replacement. We discussed the risks and benefits of both GLEN and hemiarthroplasty. She would like to hold off on signing consent and has requested to speak with Dr. Eagle prior to signing. We will have to wait for Eliquis washout and therefore she
may have a diet today. She is tentatively on the OR schedule for Sunday morning and therefore will need to be NPO after midnight on Sunday night. I have ordered antibiotics and irrigation functional manager to the OR. She is to remain on bedrest. Will
continue to follow along.
[2024-12-04] MEDS: NORVASC 2.5 MG PO (13:47)
[2024-12-04] MEDS: CYMBALTA DELAYED RELEASE 90 MG PO (13:47)
[2024-12-04] MEDS: PACERONE 100 MG PO (13:48)
[2024-12-04] MEDS: ZESTRIL 5 MG PO (13:48)
--- NOTE | 2024-12-04 14:58 | CM ---
Patient seen in ED with Physicians and patient son. Patient for surgery on sunday per physician. Patient lives in a one story home with 2 steps to enter. Patient has a walker, and a cane. Patient PCP is Dr. Tolentino and she uses the [facility] in
[place] for pharmacy needs. Patient indicated that she has been at [facility] 2x in the past and would consider them but would review with her son options from Medicare[employer]gov. Patient has physical issues and patient son encouraged patient to
consider SNF. CM indicated that therapy would consider options following surgery. CM will continue to follow for discharge planning needs.
Plan; home with VN vs SNF; pending medical treatment plan
[2024-12-04] MEDS: SPIRIVA RESPIMAT 2.5 MCG 2 PUFF INH (15:31)
[2024-12-04] MEDS: SYMBICORT 160/4.5 MCG INHALER 2 PUFF INH ×2 (15:32→19:24)
[2024-12-04] MEDS: LYRICA 75 MG PO ×2 (16:41→22:14)
[2024-12-04] MEDS: LIPITOR 10 MG PO (16:41)
[2024-12-04 18:35] LABS: Hepatitis C Antibody Negative (Negative)
[2024-12-04] MEDS: ROXICODONE 5 MG PO (19:59)
[2024-12-04] MEDS: ZANAFLEX 4 MG PO (22:13)
[2024-12-04] MEDS: ABILIFY 2 MG PO (22:14)
[2024-12-04] MEDS: ZYRTEC PO ×2 (22:14→22:25)
[2024-12-04] MEDS: SINGULAIR 10 MG PO (22:15)
[2024-12-05 02:52] VITALS: BP 109/60
[2024-12-05] MEDS: SYNTHROID 150 MCG PO (05:13)
[2024-12-05] MEDS: DILAUDID 0.5 MG IV ×4 (05:13→19:44)
[2024-12-05] MEDS: SPIRIVA RESPIMAT 2.5 MCG 2 PUFF INH (06:01)
[2024-12-05] MEDS: SYMBICORT 160/4.5 MCG INHALER 2 PUFF INH ×2 (06:01→19:35)
[2024-12-05 07:00] VITALS: BP 154/74
--- NOTE | 2024-12-05 07:03 | W.PN.UPDATE ---
Update Note
Progress Note Update
I saw Mrs. Muhammad this morning. She is well-known to our practice for multiple joint replacements. She does have bilateral patella daniel. Right knee has been painful. She has done physical therapy and most recently been immobilized. When I saw
her November 19, 2024 she was getting some thigh pain but no pain in the hip. Right hip range of motion was nonpainful. Unfortunately she felt painful pop in the right hip yesterday. X-rays/CT scan of the pelvis revealed femoral neck fracture with
displacement. Right knee x-rays show patella daniel and when compared to office x-rays remain unchanged. Examination right hip significant pain with logroll. Right knee no pain about the extensor mechanism. Unfortunately I cannot do a straight leg
raise with her because she has too much hip pain. Last office visit she was able to straight leg raise. At this moment she is going to require right hip hemiarthroplasty. 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
right total hip replacement. She also prefers Dr. Marcial due to the surgery. She is undergoing Eliquis washout so likely do surgery early next week, likely Sunday. Orthopedics to follow throughout the weekend.
--- NOTE | 2024-12-05 07:23 | W.PN.HOSP.TC ---
Addendum entered and electronically signed by Erna Bañuelos MD 12/05/24 12:46:
I saw and evaluated the patient independently. I reviewed the resident�s note and agree with findings and plan as documented by Dr. Calvert.
GENERAL: well developed, well nourished, obese female in no apparent distress
HEENT: NC/AT
HEART: regular rate and rhythm, +S1, +S2, JOSE
LUNGS : clear to auscultation bilaterally
ABDOM: soft, nontender, nondistended, + bowel sounds
EXT: no cyanosis, clubbing, or edema--right leg slightly short and externally rotated
NEUROLOGIC: grossly intact
: purewick in place clear urine
right femoral fracture--nontraumatic--likely exacerbated by compensatory ambulation from right knee pain (with knee immobilizer) due to right patellar tendon tear--apprec ortho--patient has elected to undergo total right hip arthroplasty but would
prefer to wait for Dr. Marcial to perform the surgery, anticipated date is 12/09/2024--holding eliquis--pain control-- EKG with paced rhythm--no concerns to stop or postpone surgery
Cervical and Lumbar DJD- Lumbar spine x-ray today: Moderate to severe multilevel degenerative changes of the lumbar spine--holding hydrocodone w/acetaminophen--cont oxy/IV dilaudid- continue lidocaine patches for lower back
Paroxysmal Afib with pacemaker- Hx of cardioversion in 2023- follows with Dr.Renee Botello OP- Continue amiodarone� Eliquis hold pending orthopedic procedure--no hx of CVA--will use SC heparin for DVT proph
Essential HTN--continue home medications amlodipine and lisinopril with holding parameters--Continue lasix for peripheral edema
Hypothyroidism- continue home medications
Hyperlipidemia-continue statin
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
Depression/Anxiety-continue home medications duloxetine, Abilify--home dose Ativan will be changed to BID PRN due to multiple pain meds
morbid obesity--BMI >40 --affects all aspects of care
DVT proph-- SCDs - eliquis on hold
code status--FULL CODE
Original Note:
Today's Communication/Plan
-
Lovenox
Surgery planned for Sunday
Assessment / Plan
Assessment / Plan
IMPRESSION: This is a 79-year-old female patient with PMH of A-fib on Eliquis and pacemaker, cervical/lumbar DJD, hypothyroidism, Hx of colon cancer and previous Hx of bilateral TKR and left hip replacement who presented to the ED with concerns of
right hip pain.
PLAN:
# Atraumatic right femoral fracture
#Right knee pain due to right patellar tendon tear
- CT pelvis: Right femoral neck fracture
- orthopedics consulted (follows with OP)
- anticoagulation Eliquis held pending orthopedic procedure for R hip
- Continue pain management regiment (oxy/IV Dilaudid)
- EKG: Atrial-sensed ventricular-paced rhythm w/ frequent AV dual-paced complexes. Occasional PVCs
- Will add lovenox for anticoagulation as surgery is now planned for Sunday (cardiology consulted, advised lovenox)
#Cervical and Lumbar DJD
- Lumbar spine x-ray today: Moderate to severe multilevel degenerative changes of the lumbar spine.
- pt is hydrocodone w/acetaminophen OP-- will hold
- Continue oxy/IV dilaudid
- continue lidocaine patches for lower back
# Paroxysmal Afib with pacemaker
- Hx of cardioversion in 2023
- follows with Dr.Renee Plaza OP
- Continue amiodarone
� Eliquis hold pending orthopedic procedure
#Essential HTN
- continue home medications amlodipine and lisinopril
- holding parameters
- Continue lasix for peripheral edema
# Hypothyroidism
- continue home medications
#Hyperlipidemia
-continue statin
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
-continue lyrica
#Depression/Anxiety
-continue home medications duoloxetine, abilify
- Home dose Ativan changed to BIDPRN as pt experiencing anxiety (initially was HSPRN due to multiple pain meds)
#BMI >40 due to excess calories
DVT ppx- Lovenox
FULL CODE
Anticipated Discharge: > 48 hours
Subjective/Interval History
-
Date of Service: December 05, 2024
Patient continued to experience pain due to her fracture.
Objective Data
-
Labs:
Laboratory Results
12/05/24
06:31
WBC Pending
Hgb Pending
Hct Pending
Plt Count Pending
Sodium Pending
Potassium Pending
Chloride Pending
Carbon Dioxide Pending
BUN Pending
Creatinine Pending
Glucose Pending
Calcium Pending
Vital Signs:
Vital Signs
Temp Pulse Resp BP Pulse Ox
97.7 F 79 16 109/60 92
12/05/24 02:52 12/05/24 06:01 12/05/24 06:01 12/05/24 02:52 12/05/24 06:01
I&O
12/04/24 12/05/24 12/06/24
06:59 06:59 06:59
Intake Total 480 / 480
Balance 480 / 480
Review of Systems
-
All other systems: Reviewed and negative
Physical Exam
-
General: Pain and Conversant
HEENT: Normocephalic and Atraumatic
Respiratory: Clear to Auscultation
Cardiac: Regular Rhythm and S1/S2
GI: Soft, Nontender and Nondistended
Musculoskeletal: Other (tenderness at R hip and R knee)
Skin: Warm and Dry
Neuro: Awake, Alert and Oriented
[2024-12-05 07:53] LABS: Hematocrit 36.8 % (37.0-47.0); Hemoglobin 11.9 g/dL (12.0-16.0); Mean Corp Hgb Conc. 32.3 g/dL (33.0-37.0); Mean Corpuscular Hgb 28.7 pg (27.0-31.0); Mean Corpuscular Volume 88.7 fL (81.0-99.0); Mean Platelet Volume 10.6 fL (7.4-10.4); Platelet Count 218 10^3/uL (130-400); Red Blood Cell Count 4.15 10^6/uL (4.20-5.40); Red Cell Dist. Width 14.3 % (11.5-14.5); White Blood Cell Count 8.4 10^3/uL (4.8-10.8)
[2024-12-05] MEDS: ROXICODONE 5 MG PO ×2 (08:13→21:03)
[2024-12-05] MEDS: VITAMIN B-12 1000 MCG PO (08:14)
[2024-12-05] MEDS: PACERONE 100 MG PO (08:14)
[2024-12-05] MEDS: LYRICA 75 MG PO ×3 (08:15→21:04)
[2024-12-05] MEDS: NORVASC 2.5 MG PO (08:16)
[2024-12-05] MEDS: CYMBALTA DELAYED RELEASE 90 MG PO (08:16)
[2024-12-05] MEDS: LASIX 40 MG PO (08:17)
[2024-12-05] MEDS: ZESTRIL 5 MG PO (08:17)
[2024-12-05 08:36] LABS: Blood Urea Nitrogen 14 mg/dl (7-17); Calcium 9.9 mg/dl (8.4-10.2); Carbon Dioxide 27 mmol/L (22-30); Chloride 101 mmol/L (98-107); Estimated Creatinine Clearance 72 ml/min; Glucose 91 mg/dl (70-99); Potassium 4.6 mmol/L (3.5-5.1); Sodium 132 mmol/L (135-145); eGFR > 60.00
[2024-12-05] MEDS: ATIVAN 1 MG PO (09:16)
--- NOTE | 2024-12-05 10:58 | CM ---
CM reviewed chart, patient seen bedside. Patient likely for surgery early next week, Ortho following. CM discussed SNF vs VN depending on patient progress. CM will continue to follow for all discharge planning needs.
Plan; for OR early next week, SNF vs VN pending progress
[2024-12-05 11:00] VITALS: BP 129/57
--- NOTE | 2024-12-05 11:34 | PN.CDI ---
CDI
- -
CDI:
Physician Documentation Request
Admit Date: 12/04/24 11:56
Dear Doctor Nehal,
Please review the following and provide your response in the progress notes.
Clinical Indicators:
Height: 5 ft 4 inches
Weight:243 lbs.
BMI:41.8
Other Clinical Notes: RD notes 'morbidly obese'
If possible, please provide an associated diagnosis related to the abnormal BMI, such as:
BMI > or = to 40
Overweight
Obesity:
Due to excess calories
Drug induced
Due to other cause
Severe or morbid obesity:
With alveolar hypoventilation (Obesity hypoventilation syndrome)
Without alveolar hypoventilation
- BMI is not significant
- Other
Use of terms such as suspected, likely, concern for, or probable (associated with a specific diagnosis that is being evaluated, monitored, or treated as if it exists) are acceptable and can be coded in the inpatient setting, when documented at the
time of discharge.
Thank you,
Anabelle Ch RN, BSN
CDI Specialist
tiger text
Please use your independent medical judgment in providing your response.
[2024-12-05 15:00] VITALS: BP 111/82
[2024-12-05] MEDS: HEPARIN 5000 UNITS SC (15:14)
[2024-12-05] MEDS: LIPITOR 10 MG PO (17:19)
[2024-12-05 19:49] VITALS: BP 168/92
[2024-12-05] MEDS: SINGULAIR 10 MG PO (21:04)
[2024-12-05] MEDS: ZANAFLEX 4 MG PO (21:04)
[2024-12-05] MEDS: ABILIFY 2 MG PO (21:04)
[2024-12-05] MEDS: ZYRTEC 5 MG PO (21:04)
[2024-12-05 23:41] VITALS: BP 103/61
[2024-12-06] MEDS: HEPARIN 5000 UNITS SC ×4 (00:30→23:17)
[2024-12-06 03:04] VITALS: BP 102/55
[2024-12-06] MEDS: ROXICODONE 5 MG PO (04:36)
--- NOTE | 2024-12-06 05:15 | W.PN.UPDATE ---
Update Note
Progress Note Update
Patient resting comfortably. With right hip fracture. After discussing at length patient requests to proceed with right GLEN via Dr. Marcial, if possible. Tentative plan will be Sunday as the OR and Dr. Marcial' availability permits. If Sunday not
possible, Sunday might be an option via Dr. Diaz. Norberto johnny. Currently on Heparin, which needs to be D/c at least 6 hours pre-op. Will continue to follow. Surgical and blood consents have been signed and placed to the patient's chart.
Operative site to be marked by someone on (tentatively) Dr. Marcial' surgical team. Orders have been placed in preparation for possible OR Sunday, including NPO, ABX/irrigation products (Cephalosporin allergy with tongue/lip/throat swelling,
therefore Vancomycin + Aztreonam orders placed), and updated T&S. Hgb 11.9, will follow. Will continue to follow.
[2024-12-06] MEDS: SYNTHROID 300 MCG PO (05:30)
[2024-12-06 07:00] VITALS: BP 127/69
[2024-12-06 07:13] LABS: Hematocrit 33.9 % (37.0-47.0); Hemoglobin 11.3 g/dL (12.0-16.0); Mean Corp Hgb Conc. 33.3 g/dL (33.0-37.0); Mean Corpuscular Volume 87.1 fL (81.0-99.0); Mean Platelet Volume 10.3 fL (7.4-10.4); Platelet Count 213 10^3/uL (130-400); Red Blood Cell Count 3.89 10^6/uL (4.20-5.40); Red Cell Dist. Width 14.2 % (11.5-14.5); White Blood Cell Count 12.7 10^3/uL (4.8-10.8)
--- NOTE | 2024-12-06 07:28 | W.PN.HOSP.TC ---
Addendum entered and electronically signed by Erna Bañuelos MD 12/06/24 14:19:
I saw and evaluated the patient independently. I reviewed the resident�s note and agree with findings and plan as documented by Dr. Calvert.
GENERAL: well developed, well nourished, obese female in no apparent distress
HEENT: NC/AT
HEART: regular rate and rhythm, +S1, +S2, JOSE
LUNGS : clear to auscultation bilaterally
ABDOM: soft, nontender, nondistended, + bowel sounds
EXT: no cyanosis, clubbing, or edema--right leg slightly short and externally rotated
NEUROLOGIC: grossly intact
: purewick in place clear urine
right femoral fracture--nontraumatic--likely exacerbated by compensatory ambulation from right knee pain (with knee immobilizer) due to right patellar tendon tear--apprec ortho--patient has elected to undergo total right hip arthroplasty but would
prefer to wait for Dr. Marcial to perform the surgery, anticipated date is 12/09/2024--holding eliquis--pain control-- EKG with paced rhythm--no concerns to stop or postpone surgery
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
Cervical and Lumbar DJD- Lumbar spine x-ray today: Moderate to severe multilevel degenerative changes of the lumbar spine--holding hydrocodone w/acetaminophen--cont oxy/IV Dilaudid- continue lidocaine patches for lower back
Paroxysmal Afib with pacemaker- Hx of cardioversion in 2023- follows with Dr.Renee Botello OP- Continue amiodarone� Eliquis hold pending orthopedic procedure--no hx of CVA--will use SC heparin for DVT proph
Essential HTN--continue home medications amlodipine and lisinopril with holding parameters--Continue Lasix for peripheral edema
Hypothyroidism- continue home medications
Hyperlipidemia-continue statin
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
Depression/Anxiety--continue home medications duloxetine, Abilify--home dose Ativan will be changed to BID PRN due to multiple pain meds
morbid obesity--BMI >40 --affects all aspects of care
DVT proph-- SCDs - eliquis on hold
code status--FULL CODE
Original Note:
Today's Communication/Plan
-
continue pain management
whitman
Fluid restriction
Assessment / Plan
Assessment / Plan
IMPRESSION: This is a 79-year-old female patient with PMH of A-fib on Eliquis and pacemaker, cervical/lumbar DJD, hypothyroidism, Hx of colon cancer and previous Hx of bilateral TKR and left hip replacement who presented to the ED with concerns of
right hip pain.
PLAN:
# Nontraumatic right femoral fracture
#Right knee pain due to right patellar tendon tear
- CT pelvis: Right femoral neck fracture
- orthopedics consulted (follows with OP)
- anticoagulation Eliquis held pending orthopedic procedure for R hip
- Continue pain management regiment (oxy/IV Dilaudid)
- EKG: Atrial-sensed ventricular-paced rhythm w/ frequent AV dual-paced complexes. Occasional PVCs
- Continue lovenox (needs to be stopped at least 6 hours before surgery as per ortho)
- Hb slowly downtrending, will preemptively order cross and type
- Surgery tentatively planned for Saturday 12/09
#Constipation
- has not had BM since adm
- mirax daily, hold if loose stools
- continue other prn bowel regiment
#Hyponatremia likely due to SIADH
-Na 128, serum osm 270 low
- urine studies pending
- likely due to SIADH from stress/pain of fracture
- will start FR to 48oz
#Cervical and Lumbar DJD
- Lumbar spine x-ray today: Moderate to severe multilevel degenerative changes of the lumbar spine.
- pt is hydrocodone w/acetaminophen OP-- will hold
- Continue oxy/IV dilaudid
- continue lidocaine patches for lower back
# Paroxysmal Afib with pacemaker
- Hx of cardioversion in 2023
- follows with Dr.Renee Plaza OP
- Continue amiodarone
� Eliquis hold pending orthopedic procedure
#Essential HTN
- continue home medications amlodipine and lisinopril
- holding parameters
- Continue lasix for peripheral edema
# Hypothyroidism
- continue home medications
#Hyperlipidemia
-continue statin
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
-continue lyrica
#Depression/Anxiety
-continue home medications duoloxetine, abilify
- Continue home dose Ativan BIDPRN as pt experiencing anxiety (initially was HSPRN due to multiple pain meds)
#BMI >40 due to excess calories
DVT ppx- Lovenox
FULL CODE
Anticipated Discharge: > 48 hours
Subjective/Interval History
-
Date of Service: December 06, 2024
Patient resting comfortably in bed. Pain is adequately controlled.
Objective Data
-
Labs:
Laboratory Results
12/06/24
06:02
WBC 12.7 H
Hgb 11.3 L
Hct 33.9 L
Plt Count 213
Sodium Pending
Potassium Pending
Chloride Pending
Carbon Dioxide Pending
BUN Pending
Creatinine Pending
Glucose Pending
Calcium Pending
Vital Signs:
Vital Signs
Temp Pulse Resp BP Pulse Ox
98.3 F 65 18 102/55 94
12/06/24 03:04 12/06/24 03:04 12/06/24 03:04 12/06/24 03:04 12/06/24 03:04
I&O
12/05/24 12/06/24 12/07/24
06:59 06:59 06:59
Intake Total 480 / 480 960 / 960
Output Total 1600 / 1600 450 / 450
Balance 480 / 480 -640 / -640 -450 / -450
Review of Systems
-
All other systems: Reviewed and negative
Physical Exam
-
General: No Apparent Distress and Conversant
HEENT: Normocephalic and Atraumatic
Respiratory: Clear to Auscultation
Cardiac: Regular Rhythm and S1/S2
GI: Soft, Nontender and Nondistended
Musculoskeletal: Other (tenderness at R hip)
Skin: Warm and Dry
Neuro: Awake, Alert and Oriented
[2024-12-06 07:37] LABS: Blood Urea Nitrogen 19 mg/dl (7-17); Calcium 9.8 mg/dl (8.4-10.2); Carbon Dioxide 26 mmol/L (22-30); Chloride 98 mmol/L (98-107); Estimated Creatinine Clearance 52 ml/min; Glucose 95 mg/dl (70-99); Potassium 4.2 mmol/L (3.5-5.1); Sodium 128 mmol/L (135-145); eGFR 51.75
[2024-12-06] MEDS: CYMBALTA DELAYED RELEASE 90 MG PO (07:38)
[2024-12-06] MEDS: VITAMIN B-12 1000 MCG PO (07:39)
[2024-12-06] MEDS: LYRICA 75 MG PO ×3 (07:39→21:28)
[2024-12-06] MEDS: ZESTRIL 5 MG PO (07:40)
[2024-12-06] MEDS: NORVASC 2.5 MG PO (07:41)
[2024-12-06] MEDS: PACERONE 100 MG PO (07:41)
[2024-12-06] MEDS: LASIX 40 MG PO (07:41)
[2024-12-06] MEDS: SPIRIVA RESPIMAT 2.5 MCG 2 PUFF INH (07:58)
[2024-12-06] MEDS: SYMBICORT 160/4.5 MCG INHALER 2 PUFF INH ×2 (07:58→19:56)
[2024-12-06 08:24] LABS: Osmolality Serum 273 mOsm/kg (275-300)
[2024-12-06] MEDS: DILAUDID 0.5 MG IV ×3 (09:58→19:35)
[2024-12-06 11:51] VITALS: BP 108/51
[2024-12-06 12:48] LABS: Osmolality Urine 501 mOsm/kg (300-900)
[2024-12-06 12:54] LABS: Urine Sodium 16 mmol/L (30-90)
[2024-12-06 15:00] VITALS: BP 98/51
[2024-12-06] MEDS: LIPITOR 10 MG PO (16:25)
[2024-12-06 19:30] VITALS: BP 106/60
[2024-12-06] MEDS: LYRICA 50 MG PO (19:35)
[2024-12-06] MEDS: ZANAFLEX 4 MG PO (21:28)
[2024-12-06] MEDS: ABILIFY 2 MG PO (21:29)
[2024-12-06] MEDS: SINGULAIR 10 MG PO (21:29)
[2024-12-06] MEDS: ZYRTEC 5 MG PO (21:29)
[2024-12-06 23:45] VITALS: BP 119/61
[2024-12-07 03:34] VITALS: BP 131/63
[2024-12-07] MEDS: DILAUDID IV (04:42)
[2024-12-07] MEDS: SYNTHROID 300 MCG PO (04:59)
[2024-12-07] MEDS: DILAUDID 0.5 MG IV ×4 (05:04→21:23)
[2024-12-07 06:43] LABS: Hemoglobin 11.2 g/dL (12.0-16.0); Mean Corp Hgb Conc. 32.9 g/dL (33.0-37.0); Mean Corpuscular Hgb 28.6 pg (27.0-31.0); Mean Corpuscular Volume 86.7 fL (81.0-99.0); Mean Platelet Volume 10.3 fL (7.4-10.4); Platelet Count 216 10^3/uL (130-400); Red Blood Cell Count 3.92 10^6/uL (4.20-5.40); White Blood Cell Count 11.9 10^3/uL (4.8-10.8)
[2024-12-07 07:00] VITALS: BP 102/60
--- NOTE | 2024-12-07 07:23 | W.PN.HOSP.TC ---
Addendum entered and electronically signed by Erna Bañuelos MD 12/07/24 14:16:
I saw and evaluated the patient independently. I reviewed the resident�s note and agree with findings and plan as documented by Dr. Calvert.
GENERAL: well developed, well nourished, obese female in no apparent distress
HEENT: NC/AT--O2 in place 1L because pt 'felt she needed it'
HEART: regular rate and rhythm, +S1, +S2, JOSE
LUNGS : clear to auscultation bilaterally
ABDOM: soft, nontender, nondistended, + bowel sounds
EXT: no cyanosis, clubbing, or edema--right leg slightly short and externally rotated
NEUROLOGIC: grossly intact
: whitman
right femoral fracture--nontraumatic--likely exacerbated by compensatory ambulation from right knee pain (with knee immobilizer) due to right patellar tendon tear--apprec ortho--patient has elected to undergo total right hip arthroplasty but would
prefer to wait for Dr. Marcial to perform the surgery, anticipated date is 12/09/2024--holding eliquis--pain control-- EKG with paced rhythm--no concerns to stop or postpone surgery
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
Cervical and Lumbar DJD- Lumbar spine x-ray today: Moderate to severe multilevel degenerative changes of the lumbar spine--holding hydrocodone w/acetaminophen--cont oxy/IV Dilaudid- continue lidocaine patches for lower back
Paroxysmal Afib with pacemaker- Hx of cardioversion in 2023- follows with Dr.Renee Botello OP- Continue amiodarone� Eliquis hold pending orthopedic procedure--no hx of CVA--will use SC heparin for DVT proph
Essential HTN--continue home medications amlodipine and lisinopril with holding parameters--Continue Lasix for peripheral edema
Hypothyroidism- continue home medications
Hyperlipidemia-continue statin
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
Depression/Anxiety--continue home medications duloxetine, Abilify--home dose Ativan will be changed to BID PRN due to multiple pain meds
morbid obesity--BMI >40 --affects all aspects of care
DVT proph-- SCDs - eliquis on hold
code status--FULL CODE
Original Note:
Today's Communication/Plan
-
fluid restriction
wean o2
Assessment / Plan
Assessment / Plan
IMPRESSION: This is a 79-year-old female patient with PMH of A-fib on Eliquis and pacemaker, cervical/lumbar DJD, hypothyroidism, Hx of colon cancer and previous Hx of bilateral TKR and left hip replacement who presented to the ED with concerns of
right hip pain.
PLAN:
# Nontraumatic right femoral fracture
#Right knee pain due to right patellar tendon tear
- CT pelvis: Right femoral neck fracture
- orthopedics consulted (follows with OP)
- anticoagulation Eliquis held pending orthopedic procedure for R hip
- Continue pain management regiment (oxy/IV Dilaudid)
- EKG: Atrial-sensed ventricular-paced rhythm w/ frequent AV dual-paced complexes. Occasional PVCs
- Continue lovenox (needs to be stopped at least 6 hours before surgery as per ortho)
- Hb slowly downtrending, monitor
- Surgery tentatively planned for Saturday 12/09
- on supplemental o2 of 2L likely due to anxiety as previously not required, wean as tolerated
#Constipation
- mirax daily, hold if loose stools
- continue other prn bowel regiment
- had BM
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
-Na 128, serum osm 270 low, creatinine 1.1, urine osm wnl, urine na 16
- likely due to SIADH from stress/pain of fracture
- Continue FR to 48oz
- creatinine returned to baseline
#Cervical and Lumbar DJD
- Lumbar spine x-ray today: Moderate to severe multilevel degenerative changes of the lumbar spine.
- pt is hydrocodone w/acetaminophen OP-- will hold
- Continue oxy/IV dilaudid
- continue lidocaine patches for lower back
# Paroxysmal Afib with pacemaker
- Hx of cardioversion in 2023
- follows with Dr.Renee Plaza OP
- Continue amiodarone
� Eliquis hold pending orthopedic procedure
#Essential HTN
- continue home medications amlodipine and lisinopril
- holding parameters
- Continue lasix for peripheral edema
# Hypothyroidism
- continue home medications
#Hyperlipidemia
-continue statin
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
-continue lyrica
#Depression/Anxiety
-continue home medications duoloxetine, abilify
- Continue home dose Ativan BIDPRN as pt experiencing anxiety (initially was HSPRN due to multiple pain meds)
#BMI >40 due to excess calories
DVT ppx- Lovenox
FULL CODE
Anticipated Discharge: > 48 hours
Subjective/Interval History
-
Date of Service: December 07, 2024
Patient was resting comfortably in bed.
Objective Data
-
Labs:
Laboratory Results
12/07/24 12/07/24 12/07/24
06:00 06:02 07:16
WBC 11.9 H
Hgb 11.2 L
Hct 34.0 L
Plt Count 216
Sodium Cancelled Pending
Potassium Cancelled Pending
Chloride Cancelled Pending
Carbon Dioxide Cancelled Pending
BUN Cancelled Pending
Creatinine Cancelled Pending
Glucose Cancelled Pending
Calcium Cancelled Pending
Vital Signs:
Vital Signs
Temp Pulse Resp BP Pulse Ox
99.9 F 67 16 131/63 100
12/07/24 03:34 12/07/24 03:34 12/07/24 03:34 12/07/24 03:34 12/07/24 03:34
I&O
12/06/24 12/07/24 12/08/24
06:59 06:59 06:59
Intake Total 960 / 960
Output Total 1600 / 1600 1200 / 1200
Balance -640 / -640 -1200 / -1200
Review of Systems
-
All other systems: Reviewed and negative
Physical Exam
-
General: No Apparent Distress and Conversant
HEENT: Normocephalic and Atraumatic
Respiratory: Clear to Auscultation
Cardiac: Regular Rhythm and S1/S2
GI: Soft, Nontender and Nondistended
Musculoskeletal: Other (tenderness at R hip)
Skin: Warm and Dry
Neuro: Awake, Alert and Oriented
[2024-12-07] MEDS: SYMBICORT 160/4.5 MCG INHALER 2 PUFF INH ×2 (07:52→19:52)
[2024-12-07] MEDS: SPIRIVA RESPIMAT 2.5 MCG 2 PUFF INH (07:52)
[2024-12-07 08:06] LABS: Blood Urea Nitrogen 21 mg/dl (7-17); Calcium 9.7 mg/dl (8.4-10.2); Carbon Dioxide 26 mmol/L (22-30); Chloride 100 mmol/L (98-107); Estimated Creatinine Clearance 64 ml/min; Glucose 105 mg/dl (70-99); Potassium 4.3 mmol/L (3.5-5.1); Sodium 130 mmol/L (135-145); eGFR > 60.00
[2024-12-07] MEDS: PACERONE 100 MG PO (08:29)
[2024-12-07] MEDS: LYRICA 75 MG PO ×3 (08:30→21:06)
[2024-12-07] MEDS: LYRICA 50 MG PO ×2 (08:30→19:43)
[2024-12-07] MEDS: NORVASC 2.5 MG PO (08:30)
[2024-12-07] MEDS: ZESTRIL 5 MG PO (08:31)
[2024-12-07] MEDS: LASIX 40 MG PO (08:31)
[2024-12-07] MEDS: VITAMIN B-12 1000 MCG PO (08:31)
[2024-12-07] MEDS: HEPARIN 5000 UNITS SC ×3 (08:32→23:10)
[2024-12-07] MEDS: MIRALAX 17 GRAMS PO (08:33)
[2024-12-07] MEDS: CYMBALTA DELAYED RELEASE 90 MG PO (08:37)
--- NOTE | 2024-12-07 09:33 | W.PN.UPDATE ---
Update Note
Progress Note Update
Patient resting comfortably. Resting- did not respond to verbal stim, therefore DND. With right hip fracture. After discussing at length patient requests to proceed with right GLEN via Dr. Marcial, if possible. Tentative plan will be Sunday as the
OR and Dr. Marcial' availability permits. If Sunday not possible, Sunday might be an option via Dr. Diaz. Viradavid johnny. Currently on Heparin, which needs to be D/c at least 6 hours pre-op. Will continue to follow. Surgical and blood
consents have been signed and placed to the patient's chart. Operative site to be marked by someone on (tentatively) Dr. Marcial' surgical team. Orders have been placed in preparation for possible OR Sunday, including NPO, ABX/irrigation products
(Cephalosporin allergy with tongue/lip/throat swelling, therefore Vancomycin + Aztreonam orders placed), and updated T&S. Hgb 11.2 today, will trend. Will continue to follow.
[2024-12-07 11:00] VITALS: BP 116/61
[2024-12-07 15:00] VITALS: BP 123/58
[2024-12-07] MEDS: LIPITOR 10 MG PO (16:01)
[2024-12-07] MEDS: ROXICODONE 5 MG PO (17:50)
[2024-12-07 19:55] VITALS: BP 115/51
[2024-12-07] MEDS: ATIVAN 1 MG PO (21:06)
[2024-12-07] MEDS: ZANAFLEX 4 MG PO (21:06)
[2024-12-07] MEDS: SINGULAIR 10 MG PO (21:06)
[2024-12-07] MEDS: ABILIFY 2 MG PO (21:06)
[2024-12-07] MEDS: ZYRTEC 5 MG PO (21:07)
[2024-12-07 23:53] VITALS: BP 120/63
[2024-12-08 03:36] VITALS: BP 116/62
[2024-12-08] MEDS: SYNTHROID 150 MCG PO (04:01)
[2024-12-08] MEDS: DILAUDID 0.5 MG IV ×2 (04:01→13:43)
[2024-12-08 07:00] VITALS: BP 129/65
[2024-12-08] MEDS: SPIRIVA RESPIMAT 2.5 MCG 2 PUFF INH (07:22)
[2024-12-08] MEDS: SYMBICORT 160/4.5 MCG INHALER 2 PUFF INH ×2 (07:22→18:37)
[2024-12-08 07:25] LABS: Hematocrit 33.3 % (37.0-47.0); Hemoglobin 11.1 g/dL (12.0-16.0); Mean Corp Hgb Conc. 33.3 g/dL (33.0-37.0); Mean Corpuscular Hgb 29.1 pg (27.0-31.0); Mean Corpuscular Volume 87.2 fL (81.0-99.0); Platelet Count 212 10^3/uL (130-400); Red Blood Cell Count 3.82 10^6/uL (4.20-5.40); Red Cell Dist. Width 13.8 % (11.5-14.5); White Blood Cell Count 8.7 10^3/uL (4.8-10.8)
--- NOTE | 2024-12-08 07:32 | W.PN.HOSP.TC ---
Addendum entered and electronically signed by Erna Bañuelos MD 12/08/24 16:04:
I saw and evaluated the patient independently. I reviewed the resident�s note and agree with findings and plan as documented by Dr. Calvert.
GENERAL: well developed, well nourished, obese female in no apparent distress
HEENT: NC/AT--O2 in place 1L because pt 'felt she needed it'
HEART: regular rate and rhythm, +S1, +S2, JOSE
LUNGS : clear to auscultation bilaterally
ABDOM: soft, nontender, nondistended, + bowel sounds
EXT: no cyanosis, clubbing, or edema--right leg slightly short and externally rotated
NEUROLOGIC: grossly intact
: whitman
right femoral fracture--nontraumatic--likely exacerbated by compensatory ambulation from right knee pain (with knee immobilizer) due to right patellar tendon tear--apprec ortho--patient has elected to undergo total right hip arthroplasty but would
prefer to wait for Dr. Marcial to perform the surgery, anticipated date is 12/09/2024, US neg for DVT--holding eliquis--pain control-- EKG with paced rhythm--no concerns to stop or postpone surgery
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
Cervical and Lumbar DJD- Lumbar spine x-ray today: Moderate to severe multilevel degenerative changes of the lumbar spine--holding hydrocodone w/acetaminophen--cont oxy/IV Dilaudid- continue lidocaine patches for lower back
Paroxysmal Afib with pacemaker- Hx of cardioversion in 2023- follows with Dr.Renee Botello OP- Continue amiodarone� Eliquis hold pending orthopedic procedure--no hx of CVA--will use SC heparin for DVT proph
Essential HTN--continue home medications amlodipine and lisinopril with holding parameters--Continue Lasix for peripheral edema
Hypothyroidism- continue home medications
Hyperlipidemia-continue statin
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
Depression/Anxiety--continue home medications duloxetine, Abilify--home dose Ativan will be changed to BID PRN due to multiple pain meds
morbid obesity--BMI >40 --affects all aspects of care
DVT proph-- SCDs - eliquis on hold
code status--FULL CODE
Original Note:
Today's Communication/Plan
-
continue fluid restriction
HOLD evening lovenox dose
ortho surgery planned tomorrow
Assessment / Plan
Assessment / Plan
IMPRESSION: This is a 79-year-old female patient with PMH of A-fib on Eliquis and pacemaker, cervical/lumbar DJD, hypothyroidism, Hx of colon cancer and previous Hx of bilateral TKR and left hip replacement who presented to the ED with concerns of
right hip pain.
PLAN:
# Nontraumatic right femoral fracture
#Right knee pain due to right patellar tendon tear
- CT pelvis: Right femoral neck fracture
- orthopedics consulted (follows with OP)
- anticoagulation Eliquis held pending orthopedic procedure for R hip
- Continue pain management regiment (oxy/IV Dilaudid)
- EKG: Atrial-sensed ventricular-paced rhythm w/ frequent AV dual-paced complexes. Occasional PVCs
- HOLD evening dose of lovenox
- Hb slowly downtrending, monitor
- Surgery tentatively planned for Saturday 12/09
#Constipation
- mirax daily, hold if loose stools
- continue other prn bowel regiment
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
-Na 128, serum osm 270 low, creatinine 1.1, urine osm wnl, urine na 16
- likely due to SIADH from stress/pain of fracture
- Continue FR to 48oz
- creatinine returned to baseline
#Cervical and Lumbar DJD
- Lumbar spine x-ray today: Moderate to severe multilevel degenerative changes of the lumbar spine.
- pt is hydrocodone w/acetaminophen OP-- will hold
- Continue oxy/IV dilaudid
- continue lidocaine patches for lower back
# Paroxysmal Afib with pacemaker
- Hx of cardioversion in 2023
- follows with Dr.Renee Botello OP
- Continue amiodarone
� Eliquis hold pending orthopedic procedure
#Essential HTN
- continue home medications amlodipine and lisinopril
- holding parameters
- Continue lasix for peripheral edema
# Hypothyroidism
- continue home medications
#Hyperlipidemia
-continue statin
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
-continue lyrica
#Depression/Anxiety
-continue home medications duoloxetine, abilify
- Continue home dose Ativan BIDPRN as pt experiencing anxiety (initially was HSPRN due to multiple pain meds)
#BMI >40 due to excess calories
DVT ppx- Lovenox
FULL CODE
Anticipated Discharge: 24 - 48 hours
Subjective/Interval History
-
Date of Service: December 08, 2024
Patient is comfortably in bed with pain adequately controlled.
Objective Data
-
Labs:
Laboratory Results
12/08/24
06:55
WBC 8.7
Hgb 11.1 L
Hct 33.3 L
Plt Count 212
Sodium Pending
Potassium Pending
Chloride Pending
Carbon Dioxide Pending
BUN Pending
Creatinine Pending
Glucose Pending
Calcium Pending
Vital Signs:
Vital Signs
Temp Pulse Resp BP Pulse Ox
97.6 F 70 16 116/62 97
12/08/24 03:36 12/08/24 07:27 12/08/24 07:27 12/08/24 03:36 12/08/24 03:36
I&O
12/07/24 12/08/24 12/09/24
06:59 06:59 06:59
Intake Total 480 / 480
Output Total 1200 / 1200 550 / 550
Balance -1200 / -1200 -70 / -70
Review of Systems
-
All other systems: Reviewed and negative
Physical Exam
-
General: No Apparent Distress and Conversant
HEENT: Normocephalic and Atraumatic
Respiratory: Clear to Auscultation
Cardiac: Regular Rhythm and S1/S2
GI: Soft, Nontender and Nondistended
Musculoskeletal: Other (tenderness at R hip)
Skin: Warm and Dry
Neuro: Awake, Alert and Oriented
--- NOTE | 2024-12-08 07:37 | W.PN.UPDATE ---
Update Note
Progress Note Update
Patient resting comfortably. Feeling well this AM. Looking forward to, hopefully, tomorrow. With right hip fracture. After discussing at length patient requests to proceed with right GLEN via Dr. Marcial, if possible. Tentative plan will be Sunday
as the OR and Dr. Marcial' availability permits. If Sunday not possible, Sunday might be an option via Dr. Diaz. Viradavid johnny. Currently on Heparin, which needs to be D/c at least 6 hours pre-op. Will continue to follow. Surgical and blood
consents have been signed and placed to the patient's chart. Operative site to be marked by someone on (tentatively) Dr. Marcial' surgical team. Orders have been placed in preparation for possible OR Sunday, including NPO, ABX/irrigation products
(Cephalosporin allergy with tongue/lip/throat swelling, therefore Vancomycin + Aztreonam orders placed), and updated T&S. Hgb 11.1 today, will trend. Given prolonged time in bed will request Doppler US of B/L LEs later today to assure no DVT has
developed. Will continue to follow.
[2024-12-08 08:00] LABS: Blood Urea Nitrogen 22 mg/dl (7-17); Calcium 9.9 mg/dl (8.4-10.2); Carbon Dioxide 30 mmol/L (22-30); Chloride 99 mmol/L (98-107); Estimated Creatinine Clearance 72 ml/min; Glucose 96 mg/dl (70-99); Sodium 130 mmol/L (135-145); eGFR > 60.00
[2024-12-08] MEDS: MIRALAX 17 GRAMS PO (08:03)
[2024-12-08] MEDS: LASIX 40 MG PO (08:06)
[2024-12-08] MEDS: ZESTRIL 5 MG PO (08:08)
[2024-12-08] MEDS: CYMBALTA DELAYED RELEASE 90 MG PO (08:08)
[2024-12-08] MEDS: LYRICA 75 MG PO ×3 (08:09→22:59)
[2024-12-08] MEDS: LYRICA 50 MG PO ×2 (08:09→19:34)
[2024-12-08] MEDS: VITAMIN B-12 1000 MCG PO (08:09)
[2024-12-08] MEDS: HEPARIN 5000 UNITS SC ×2 (08:10→16:11)
[2024-12-08] MEDS: PACERONE 100 MG PO (08:10)
[2024-12-08] MEDS: NORVASC 2.5 MG PO (08:10)
[2024-12-08] MEDS: ROXICODONE 5 MG PO ×2 (08:24→15:10)
[2024-12-08 11:00] VITALS: BP 113/62
[2024-12-08 15:00] VITALS: BP 151/73
[2024-12-08] MEDS: ATIVAN 1 MG PO ×2 (16:10→23:02)
[2024-12-08 16:42] LABS: Urine Albumin 3+ (Neg - Trace); Urine Bilirubin Negative (Negative); Urine Character Cloudy (Clear); Urine Color Yellow; Urine Glucose Negative (Negative); Urine Ketone Negative (Negative); Urine Leukocyte 3+ (Negative); Urine Nitrite Negative (Negative); Urine Occult Blood 4+ (Negative); Urine Specific Gravity 1.015 (<1.030); Urine Urobilinogen 1+ (Neg - 1+)
[2024-12-08 16:52] LABS: Urine Bacteria Many (Negative); Urine Red Blood Cell 0-2 /HPF (0-2); Urine White Cell 40-50 /HPF (0-5)
--- NOTE | 2024-12-08 17:00 | PTCARENOTE ---
pt's was voiding urine around the whitman x 2. physician was notified and placed orders to remove whitman and replace. urine was yellow in color with sediment present. urine was collected and sent to the lab
[2024-12-08] MEDS: LIPITOR 10 MG PO (19:13)
[2024-12-08 19:55] VITALS: BP 151/78
[2024-12-08] MEDS: ABILIFY 2 MG PO (22:59)
[2024-12-08] MEDS: ZYRTEC 5 MG PO (22:59)
[2024-12-08] MEDS: SINGULAIR 10 MG PO (22:59)
[2024-12-08] MEDS: ZANAFLEX 4 MG PO (22:59)
[2024-12-08 23:18] VITALS: BP 145/76
[2024-12-09] VITALS (13 sets, daily range): BP systolic 91–149; BP diastolic 55–98; BMI 41.8
[2024-12-09] MEDS: DILAUDID 0.5 MG IV ×3 (01:14→19:40)
[2024-12-09] MEDS: SYNTHROID 150 MCG PO (05:33)
--- NOTE | 2024-12-09 07:07 | W.PN.UPDATE ---
Update Note
Progress Note Update
Patient has right hip fracture which is going to require total hip arthroplasty later today. Ultrasound bilateral lower extremities December 08, 2024 negative for DVT. She has been n.p.o. and heparin has been on hold. Antibiotics and iodine/TXA
irrigation on-call to operating room. Surgical location marked. Surgical and blood consents signed.
[2024-12-09 07:30] LABS: Hematocrit 32.5 % (37.0-47.0); Hemoglobin 10.8 g/dL (12.0-16.0); Mean Corp Hgb Conc. 33.2 g/dL (33.0-37.0); Mean Corpuscular Hgb 29.2 pg (27.0-31.0); Mean Corpuscular Volume 87.8 fL (81.0-99.0); Mean Platelet Volume 9.9 fL (7.4-10.4); Platelet Count 249 10^3/uL (130-400); White Blood Cell Count 8.3 10^3/uL (4.8-10.8)
--- NOTE | 2024-12-09 07:45 | W.PN.HOSP.TC ---
Addendum entered and electronically signed by Erna Bañuelos MD 12/09/24 16:06:
I saw and evaluated the patient independently. I reviewed the resident�s note and agree with findings and plan as documented by Dr. Calvert.
GENERAL: well developed, well nourished, obese female in no apparent distress
HEENT: NC/AT--O2 in place 1L because pt 'felt she needed it'
HEART: regular rate and rhythm, +S1, +S2, JOSE
LUNGS : clear to auscultation bilaterally
ABDOM: soft, nontender, nondistended, + bowel sounds
EXT: no cyanosis, clubbing, or edema--right leg slightly short and externally rotated
NEUROLOGIC: grossly intact
: whitman
right femoral fracture--nontraumatic--likely exacerbated by compensatory ambulation from right knee pain (with knee immobilizer) due to right patellar tendon tear--apprec ortho--patient has elected to undergo total right hip arthroplasty but would
prefer to wait for Dr. Marcial to perform the surgery, anticipated date is 12/09/2024, neg for DVT--holding eliquis--pain control-- EKG with paced rhythm--no concerns to stop or postpone surgery
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
Cervical and Lumbar DJD- Lumbar spine x-ray today: Moderate to severe multilevel degenerative changes of the lumbar spine--holding hydrocodone w/acetaminophen--cont oxy/IV Dilaudid- continue lidocaine patches for lower back
Paroxysmal Afib with pacemaker- Hx of cardioversion in 2023- follows with Dr.Renee Botello OP- Continue amiodarone� Eliquis hold pending orthopedic procedure--no hx of CVA--will use SC heparin for DVT proph--restart Eliquis post op
Essential HTN--continue home medications amlodipine and lisinopril with holding parameters--Continue Lasix for peripheral edema
UTI--whitman cath placed for acute retention and UA findings c/w UTI but culture pending--cannot say that it was due to the whitman cath as she had retention which required the whitman--she had NO dysuria symptoms either--we have elected to treat since
she is getting an artificial hip for her hip fracture and do not wish to contaminate the new hardware rather than call this asymptomatic bacteriuria....
Hypothyroidism- continue home medications
Hyperlipidemia-continue statin
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
Depression/Anxiety--continue home medications duloxetine, Abilify--home dose Ativan will be changed to BID PRN due to multiple pain meds
morbid obesity--BMI >40 --affects all aspects of care
DVT proph-- SCDs - eliquis on hold
code status--FULL CODE
Original Note:
Today's Communication/Plan
-
surgery planned for today
Assessment / Plan
Assessment / Plan
IMPRESSION: This is a 79-year-old female patient with PMH of A-fib on Eliquis and pacemaker, cervical/lumbar DJD, hypothyroidism, Hx of colon cancer and previous Hx of bilateral TKR and left hip replacement who presented to the ED with concerns of
right hip pain.
PLAN:
# Nontraumatic right femoral fracture
#Right knee pain due to right patellar tendon tear
- CT pelvis: Right femoral neck fracture
- orthopedics consulted (follows with OP)
- anticoagulation Eliquis held pending orthopedic procedure for R hip
- Continue pain management regiment (oxy/IV Dilaudid)
- EKG: Atrial-sensed ventricular-paced rhythm w/ frequent AV dual-paced complexes. Occasional PVCs
- Hb slowly downtrending, monitor
- US b/l LE: neg for DVT
- Surgery planned for today
- Lovenox held, will restart after surgey as per ortho
#UTI
- U/A findings consistent with UTI, culture pending
- Aztreonam given pre-op, will continue post surgery
#Constipation
- mirax daily, hold if loose stools
- continue other prn bowel regiment
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
-Na 128, serum osm 270 low, creatinine 1.1, urine osm wnl, urine na 16
- likely due to SIADH from stress/pain of fracture
- Continue FR to 48oz
- Sodium returning to nbaseline
- creatinine returned to baseline
#Cervical and Lumbar DJD
- Lumbar spine x-ray today: Moderate to severe multilevel degenerative changes of the lumbar spine.
- pt is hydrocodone w/acetaminophen OP-- will hold
- Continue oxy/IV dilaudid
- continue lidocaine patches for lower back
# Paroxysmal Afib with pacemaker
- Hx of cardioversion in 2023
- follows with Dr.Renee Botello OP
- Continue amiodarone
� Eliquis hold pending orthopedic procedure
#Essential HTN
- continue home medications amlodipine and lisinopril
- holding parameters
- Continue lasix for peripheral edema
# Hypothyroidism
- continue home medications
#Hyperlipidemia
-continue statin
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
-continue lyrica
#Depression/Anxiety
-continue home medications duoloxetine, abilify
- Continue home dose Ativan BIDPRN as pt experiencing anxiety (initially was HSPRN due to multiple pain meds)
#BMI >40 due to excess calories
DVT ppx- Lovenox
FULL CODE
Anticipated Discharge: 24 - 48 hours
Subjective/Interval History
-
Date of Service: December 09, 2024
patient is resting in bed comfortably
Objective Data
-
Labs:
Laboratory Results
12/09/24
06:36
WBC 8.3
Hgb 10.8 L
Hct 32.5 L
Plt Count 249
Sodium Pending
Potassium Pending
Chloride Pending
Carbon Dioxide Pending
BUN Pending
Creatinine Pending
Glucose Pending
Calcium Pending
Vital Signs:
Vital Signs
Temp Pulse Resp BP Pulse Ox
98.1 F 62 16 101/60 96
12/09/24 03:38 12/09/24 03:38 12/09/24 03:38 12/09/24 03:38 12/09/24 03:38
I&O
12/08/24 12/09/24 12/10/24
06:59 06:59 06:59
Intake Total 480 / 480 480 / 480
Output Total 550 / 550 650 / 650
Balance -70 / -70 -170 / -170
Review of Systems
-
All other systems: Reviewed and negative
Physical Exam
-
General: No Apparent Distress and Conversant
HEENT: Normocephalic and Atraumatic
Respiratory: Clear to Auscultation
Cardiac: Regular Rhythm and S1/S2
GI: Soft, Nontender and Nondistended
Musculoskeletal: Other (tenderness at R hip)
Skin: Warm and Dry
Neuro: Awake, Alert and Oriented
[2024-12-09] MEDS: SPIRIVA RESPIMAT 2.5 MCG 2 PUFF INH (07:59)
[2024-12-09] MEDS: SYMBICORT 160/4.5 MCG INHALER 2 PUFF INH ×2 (07:59→19:25)
[2024-12-09 08:10] LABS: Blood Urea Nitrogen 24 mg/dl (7-17); Carbon Dioxide 26 mmol/L (22-30); Chloride 101 mmol/L (98-107); Estimated Creatinine Clearance 72 ml/min; Glucose 102 mg/dl (70-99); Potassium 4.8 mmol/L (3.5-5.1); Sodium 131 mmol/L (135-145); eGFR > 60.00
[2024-12-09] MEDS: CYMBALTA DELAYED RELEASE 90 MG PO (08:24)
[2024-12-09] MEDS: ZESTRIL 5 MG PO (08:27)
[2024-12-09] MEDS: LYRICA 75 MG PO ×3 (08:27→22:15)
[2024-12-09] MEDS: VITAMIN B-12 1000 MCG PO (08:27)
[2024-12-09] MEDS: LYRICA 50 MG PO ×2 (08:27→19:42)
[2024-12-09] MEDS: LASIX 40 MG PO (08:28)
[2024-12-09] MEDS: MIRALAX PO (08:28)
[2024-12-09] MEDS: PACERONE 100 MG PO (08:28)
[2024-12-09] MEDS: NORVASC 2.5 MG PO (08:28)
--- NOTE | 2024-12-09 11:06 | CM ---
Patient seen at bedside on with patient son and physicians. Patient for surgery today. Patient requesting referrals post surgical assessment to [facility], [facility], [facility] and [place] if private room available. CM will send referrals pending
PT/OT assessment. CM will continue to follow for discharge planning needs.
Plan;SNF; pending physician assessment post surgery.
[2024-12-09] MEDS: DUONEB 3 ML INH (11:45)
[2024-12-09] MEDS: DUONEB INH (12:28)
[2024-12-09] MEDS: LIPITOR 10 MG PO (17:06)
[2024-12-09] MEDS: NSS 1000 IV (17:08)
[2024-12-09] MEDS: ROXICODONE 5 MG PO (18:02)
[2024-12-09] MEDS: ELIQUIS 2.5 MG PO (19:42)
[2024-12-09] MEDS: SENOKOT 17.2 MG PO (19:42)
[2024-12-09] MEDS: COLACE 100 MG PO (19:43)
[2024-12-09] MEDS: AZACTAM 1000 MG IV (19:43)
[2024-12-09] MEDS: STERILE WATER FOR INJECTION 10 ML IV (19:43)
[2024-12-09] MEDS: BACTROBAN 2% OINTMENT 1 APPLIC NASAL (19:54)
--- NOTE | 2024-12-09 20:15 | PTCARENOTE ---
Pt c/o pain to RFA IV site. INT removed. Site infiltrated. Warmth applied and elevated on pillow.
[2024-12-09] MEDS: ZANAFLEX 4 MG PO (22:15)
[2024-12-09] MEDS: ABILIFY 2 MG PO (22:15)
[2024-12-09] MEDS: SINGULAIR 10 MG PO (22:15)
[2024-12-09] MEDS: ZYRTEC 5 MG PO (22:15)
--- NOTE | 2024-12-09 22:57 | VATNOTE ---
DAKOTA infiltrate PCN pulled line and placed heat and elevated per VAT request while VAT RN restarted line
[2024-12-09] MEDS: VANCOCIN 200 IV (23:30)
[2024-12-10] VITALS (9 sets, daily range): BP systolic 100–157; BP diastolic 47–86; PULSE 68–80; O2SAT 92
[2024-12-10] MEDS: TUMS CHEWABLE TABLET 200 MG PO (00:41)
[2024-12-10] MEDS: AZACTAM 1000 MG IV ×3 (03:23→21:10)
[2024-12-10] MEDS: STERILE WATER FOR INJECTION 10 ML IV ×3 (03:23→21:10)
[2024-12-10] MEDS: SYNTHROID 150 MCG PO (05:14)
--- NOTE | 2024-12-10 07:24 | W.PN.HOSP.TC ---
Addendum entered and electronically signed by Erna Bañuelos MD 12/10/24 17:53:
I saw and evaluated the patient independently. I reviewed the resident�s note and agree with findings and plan as documented by Dr. Calvert.
GENERAL: well developed, well nourished, obese female in no apparent distress
HEENT: NC/AT--O2 in place 1L because pt 'felt she needed it'
HEART: regular rate and rhythm, +S1, +S2, JOSE
LUNGS : clear to auscultation bilaterally
ABDOM: soft, nontender, nondistended, + bowel sounds
EXT: no cyanosis, clubbing, or edema--right leg slightly short and externally rotated
NEUROLOGIC: grossly intact
: whitman
right femoral fracture--nontraumatic--likely exacerbated by compensatory ambulation from right knee pain (with knee immobilizer) due to right patellar tendon tear--apprec ortho--patient has elected to undergo total right hip arthroplasty but would
prefer to wait for Dr. Marcial to perform the surgery, anticipated date is 12/09/2024, US neg for DVT--holding eliquis--pain control-- EKG with paced rhythm--no concerns to stop or postpone surgery
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
Cervical and Lumbar DJD- Lumbar spine x-ray today: Moderate to severe multilevel degenerative changes of the lumbar spine--holding hydrocodone w/acetaminophen--cont oxy/IV Dilaudid- continue lidocaine patches for lower back
Paroxysmal Afib with pacemaker- Hx of cardioversion in 2023- follows with Dr.Renee Botello OP- Continue amiodarone� Eliquis hold pending orthopedic procedure--no hx of CVA--will use SC heparin for DVT proph--restart Eliquis post op
Essential HTN--continue home medications amlodipine and lisinopril with holding parameters--Continue Lasix for peripheral edema
catheter associated proteus UTI--whitman cath placed for acute retention and UA findings c/w UTI--we have elected to treat since she is getting an artificial hip for her hip fracture and do not wish to contaminate the new hardware rather than call
this asymptomatic bacteriuria as she had no symptoms but retention--apprec ID
Hypothyroidism- continue home medications
Hyperlipidemia-continue statin
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
Depression/Anxiety--continue home medications duloxetine, Abilify--home dose Ativan will be changed to BID PRN due to multiple pain meds
morbid obesity--BMI >40 --affects all aspects of care
DVT proph-- SCDs - eliquis on hold
code status--FULL CODE
disposition--SNF
Original Note:
Today's Communication/Plan
-
ID consult
continue abx
Assessment / Plan
Assessment / Plan
IMPRESSION: This is a 79-year-old female patient with PMH of A-fib on Eliquis and pacemaker, cervical/lumbar DJD, hypothyroidism, Hx of colon cancer and previous Hx of bilateral TKR and left hip replacement who presented to the ED with concerns of
right hip pain.
PLAN:
# Nontraumatic right femoral fracture- R total hip arthroplasty 12/09
#Right knee pain due to right patellar tendon tear
- CT pelvis: Right femoral neck fracture
- orthopedics consulted (follows with OP)
- anticoagulation Eliquis held pending orthopedic procedure for R hip
- Continue pain management regiment (oxy/IV Dilaudid)
- EKG: Atrial-sensed ventricular-paced rhythm w/ frequent AV dual-paced complexes. Occasional PVCs
- Hb slowly downtrending, monitor
- US b/l LE: neg for DVT
- Continue Lovenox
- PT/OT following
#UTI
-whitman placed on 11/06 due to acute retention (no dysuria). Whitman dislodged and replaced on 11/08.
- U/A findings consistent with UTI, culture showing Proteus, sensitivities pending
- Continue Aztreonam
- ID consulted due to UTI in setting of recent R hip hardware
#Constipation
- mirax daily, hold if loose stools
- continue other prn bowel regiment
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
-Na 128, serum osm 270 low, creatinine 1.1, urine osm wnl, urine na 16
- likely due to SIADH from stress/pain of fracture
- Continue FR to 48oz
- Sodium returning to baseline
- creatinine baseline
#Cervical and Lumbar DJD
- Lumbar spine x-ray today: Moderate to severe multilevel degenerative changes of the lumbar spine.
- pt is hydrocodone w/acetaminophen OP-- will hold
- Continue oxy/IV dilaudid
- continue lidocaine patches for lower back
# Paroxysmal Afib with pacemaker
- Hx of cardioversion in 2023
- follows with Dr.Renee Botello OP
- Continue amiodarone
� Continue Eliquis
#Essential HTN
- continue home medications amlodipine and lisinopril
- holding parameters
- Continue lasix for peripheral edema
# Hypothyroidism
- continue home medications
#Hyperlipidemia
-continue statin
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
-continue lyrica
#Depression/Anxiety
-continue home medications duoloxetine, abilify
- Continue home dose Ativan BIDPRN as pt experiencing anxiety (initially was HSPRN due to multiple pain meds)
#BMI >40 due to excess calories
DVT ppx- Eliquis
FULL CODE
Anticipated Discharge: 24 - 48 hours
Subjective/Interval History
-
Date of Service: December 10, 2024
Patient was resting comfortably in bed. She had a difficult time physically moving to the bathroom.
Objective Data
-
Labs:
Laboratory Results
12/10/24
07:20
WBC Pending
Hgb Pending
Hct Pending
Plt Count Pending
Sodium Pending
Potassium Pending
Chloride Pending
Carbon Dioxide Pending
BUN Pending
Creatinine Pending
Glucose Pending
Calcium Pending
Vital Signs:
Vital Signs
Temp Pulse Resp BP Pulse Ox
99.2 F 66 16 117/62 96
12/10/24 03:00 12/10/24 03:00 12/10/24 03:00 12/10/24 03:00 12/10/24 03:00
I&O
12/09/24 12/10/24 12/11/24
06:59 06:59 06:59
Intake Total 480 / 480 1520 / 1520
Output Total 650 / 650
Balance -170 / -170 1520 / 1520
Review of Systems
-
All other systems: Reviewed and negative
Physical Exam
-
General: No Apparent Distress and Conversant
HEENT: Normocephalic and Atraumatic
Respiratory: Clear to Auscultation
Cardiac: Regular Rhythm and S1/S2
GI: Soft, Nontender and Nondistended
Musculoskeletal: Other (R hip surgical dressing dry and intact)
Skin: Warm and Dry
Neuro: Awake, Alert and Oriented
[2024-12-10 07:34] LABS: Hematocrit 30.1 % (37.0-47.0); Hemoglobin 9.8 g/dL (12.0-16.0); Mean Corp Hgb Conc. 32.6 g/dL (33.0-37.0); Mean Corpuscular Hgb 28.5 pg (27.0-31.0); Mean Corpuscular Volume 87.5 fL (81.0-99.0); Mean Platelet Volume 9.7 fL (7.4-10.4); Platelet Count 259 10^3/uL (130-400); Red Blood Cell Count 3.44 10^6/uL (4.20-5.40); Red Cell Dist. Width 13.7 % (11.5-14.5); White Blood Cell Count 10.2 10^3/uL (4.8-10.8)
--- NOTE | 2024-12-10 07:39 | W.PN.ORTHO ---
Today's Communication / Plan
-
79 yo F POD1 following her right total hip arthroplasty for femoral neck fracture under the direction of Dr. Marcial
--WBAT with walker. Strict adherence to posterior THPs for 6-8 weeks. We appreciate the assistance of PT/OT.
--Modified Eliquis dosing for DVT ppx.
--Pain control prn. Ice and elevation for edema control.
--Hgb 9.8 this AM. Continue to monitor.
--Maintain surgical dressing until 7-10 days post-op. Reinforce or change as needed. Staple removal at 2 weeks post-op.
--Case management consult for discharge planning.
--Orthopedics will continue to follow along.
Assessment
.
Distal Motor Intact: Yes
Dressing:
Clean, dry and intact.
Plan
.
Surgery / Date: Right GLEN, Aggie, 12/09
DVT Prophylaxis: Other (Modified Eliquis)
Activity:
Out of bed.
PT/OT
Subjective
.
.:
Ms. Muhammad is POD1 following her right total hip arthroplasty performed by Dr. Marcial. She endorses aching pain about the hip, and states she has had difficulty moving her right leg. She does report she required pain medication every 2 hours
overnight for appropriate pain control.
Vital Signs and Labs
.
Vital Signs and Labs:
Lab Results
12/10/24 07:20
Temp Pulse Resp BP Pulse Ox
99.2 F 66 16 117/62 96
12/10/24 03:00 12/10/24 03:00 12/10/24 03:00 12/10/24 03:00 12/10/24 03:00
Non-invasive Hgb result: 11.8
Physical Exam
-
Directed exam of the right lower extremity reveals surgical dressing clean, dry and intact. Thigh soft and compressible. Calf soft and nontender. Patient able to wiggle toes, plantar and dorsiflex ankle. Neurovascularly intact distally.
[2024-12-10] MEDS: MIRALAX 17 GRAMS PO (08:13)
[2024-12-10] MEDS: SENOKOT 17.2 MG PO ×2 (08:13→21:08)
[2024-12-10] MEDS: CYMBALTA DELAYED RELEASE 90 MG PO (08:13)
[2024-12-10] MEDS: NORVASC 2.5 MG PO (08:13)
[2024-12-10] MEDS: PACERONE 100 MG PO (08:14)
[2024-12-10] MEDS: ROXICODONE 5 MG PO ×2 (08:14→21:09)
[2024-12-10] MEDS: COLACE 100 MG PO ×2 (08:14→21:07)
[2024-12-10] MEDS: LYRICA 50 MG PO ×2 (08:14→21:16)
[2024-12-10] MEDS: LYRICA 75 MG PO ×3 (08:14→21:07)
[2024-12-10] MEDS: TYLENOL 650 MG PO ×2 (08:15→19:37)
[2024-12-10] MEDS: VITAMIN B-12 1000 MCG PO (08:15)
[2024-12-10] MEDS: LASIX 40 MG PO (08:15)
[2024-12-10] MEDS: ELIQUIS 2.5 MG PO ×2 (08:15→21:07)
[2024-12-10] MEDS: ZESTRIL 5 MG PO (08:15)
[2024-12-10] MEDS: BACTROBAN 2% OINTMENT 1 APPLIC NASAL ×2 (08:16→21:18)
[2024-12-10] MEDS: SPIRIVA RESPIMAT 2.5 MCG 2 PUFF INH (08:45)
[2024-12-10] MEDS: SYMBICORT 160/4.5 MCG INHALER 2 PUFF INH ×2 (08:46→19:57)
[2024-12-10 09:45] LABS: Blood Urea Nitrogen 26 mg/dl (7-17); Carbon Dioxide 26 mmol/L (22-30); Chloride 101 mmol/L (98-107); Estimated Creatinine Clearance 72 ml/min; Glucose 107 mg/dl (70-99); Potassium 4.8 mmol/L (3.5-5.1); Sodium 131 mmol/L (135-145); eGFR > 60.00
--- NOTE | 2024-12-10 15:56 | DOWNTIME ---
There was a Explain My Surgery Client Manager Surgery Downtime on 12/10/2024 from 1230 to 12/10/2024 at 1550. Downtime documentation of patient's care, including medication administrations, has been reconciled in the electronic record per guidelines. Refer to the
patient's paper chart under the miscellaneous tab to see printed paper medication records and downtime forms.
--- NOTE | 2024-12-10 16:20 | CM ---
Patient seen at bedside with physicians, [address]. Patient updated on options for SNF placement and await physician assessment/ PT/OT assessments. CM will continue to follow for discharge planning needs.
Plan; SNF
--- NOTE | 2024-12-10 16:53 | W.PN.UPDATE ---
Update Note
Progress Note Update
I personally performed a history and physical exam of the patient and discussed management with the resident. I reviewed the resident's note and agree with the documented findings and plan of care HPI/CC with the following additions/corrections:
General: No Apparent Distress
Respiratory: Clear to Auscultation bilaterally and no rales, wheezes or rhonchi
Cardiac: Regular Rhythm and S1/S2, no murmurs gallops or rubs
GI: Soft, Nontender and Nondistended
: no suprapubic tenderness, no cva tenderness
Skin: Warm and Dry
Neuro: Awake
A&P:
CAUTI due to Proteus
Reported allergies to: penicillin/keflex/amoxicillin: lip/tongue swelling; ADR with erythromycin: GI upset
R GLEN 12/09
- no need for blood cultures in my opinion
- urine culture 100K proteus
- reasonable to continue aztreonam given history of angioedema, will plan to use a non-beta lactam therapy to complete a course of treatment
[2024-12-10] MEDS: LIPITOR 10 MG PO (17:39)
--- NOTE | 2024-12-10 17:40 | CON.ID ---
Addendum entered and electronically signed by Reny Vega MD 12/11/24 09:21:
I personally performed a history and physical exam of the patient and discussed management with the resident. I reviewed the resident's note and agree with the documented findings and plan of care HPI/CC with the following additions/corrections:
I personally performed a history and physical exam of the patient and discussed management with the resident. I reviewed the resident's note and agree with the documented findings and plan of care HPI/CC with the following additions/corrections:
General: No Apparent Distress
Respiratory: Clear to Auscultation bilaterally and no rales, wheezes or rhonchi
Cardiac: Regular Rhythm and S1/S2, no murmurs gallops or rubs
GI: Soft, Nontender and Nondistended
: no suprapubic tenderness, no cva tenderness
Skin: Warm and Dry
Neuro: Awake
A&P:
CAUTI due to Proteus
Reported allergies to: penicillin/keflex/amoxicillin: lip/tongue swelling; ADR with erythromycin: GI upset
R GLEN 12/09
- no need for blood cultures in my opinion
- urine culture 100K proteus
- reasonable to continue aztreonam given history of angioedema, will plan to use a non-beta lactam therapy to complete a course of treatment
AW
Original Note:
Consultation
-
Date/Time Consultation Requested: 12/10/2024 9:41
Date/Time Consultation Performed: 12/10/2024 16:40
Requesting Provider: Nolvia Calvert MD
Performing Provider: Reny Vega MD
Reason for Consultation: UTI coverage
Chief Complaint / Past History
Chief Complaint
Catheter associated UTI
History of Present Illness
Ms. Rushing is a 79-year-old female with PMH of colon cancer, bilateral TKR, left total hip replacement, chronic neck and back pain with scoliosis and sciatica on chronic opioid, who presented to the hospital on 12/04/2024 after she slid from her
recliner while trying to get up and developed a right hip pain radiating to the right knee and right lower back. She follows with Dr. Marcial. Denies for or head trauma. X-ray/CT scan of the pelvis revealed femoral neck fracture with
displacement. She underwent a right total hip arthroplasty on 12/09/2024 (Dr. Marcial) and is recovering well. Unfortunately, Azevedo placed on 11/06 due to acute urinary retention dislodged and was replaced on 11/08. Subsequent urinalysis showed UTI
and urine culture was positive for Proteus species. Patient was also noted to have allergies to multiple antibiotics and was started on aztreonam. ID was consulted due to concerns of antibiotic adequacy in preventing new right hip hardware
colonization.
Past History
Past Medical History: Arrhythmias (Atrial fibrillation), Asthma, CAD, Cancer (Colon cancer 2007) and HTN
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
Bilateral total knee replacements) and Other (Surgery for deviated septum))
Allergy History:
ampicillin Allergy (Verified 12/04/24 05:05)
Rash
atenolol Allergy (Verified 12/04/24 05:05)
'Asthma attack'wheezing, swelling of lips and tongue
cephalexin monohydrate (From Keflex) Allergy (Verified 12/04/24 05:05)
Swelling of tongue & lips
Cephalosporins Allergy (Verified 12/04/24 05:05)
swelling tongue, lips
erythromycin base Allergy (Verified 12/04/24 05:05)
irritable GI, upset stomach
esomeprazole magnesium (From Nexium) Allergy (Verified 12/04/24 05:05)
upset stomach - nausea and vomiting
pantoprazole sodium (From Protonix) Allergy (Verified 12/04/24 05:05)
nausea and vomitting
penicillin V Allergy (Verified 12/04/24 05:05)
Rash
Penicillins Allergy (Verified 12/04/24 05:05)
Rash
pollen extracts Allergy (Verified 12/04/24 05:05)
SEASONAL ALLERGIES
kenalog cortisone shot Adverse Reaction (Uncoded 12/04/24 05:05)
whole body turned red & hot/rash ran up arm & down torso
Medications Reviewed: Yes
Social History
Tobacco: Non-Smoker
Alcohol: None
Drug: None
Personal:
Living: With Family
Employment: Retired
Family History
Family History: Not Pertinent
Review of Systems
Review of Systems
General: Negative Fever
Cardiovascular: Negative Chest Pain
Respiratory: Negative Dyspnea
Musculoskeletal: Joint Swelling (Right knee)
Neurological: Negative Headache
All systems: All other systems were reviewed and were negative
Vital Signs
Temp Pulse Resp BP Pulse Ox
99.1 F 72 18 134/71 98
12/10/24 12:09 12/10/24 12:09 12/10/24 12:09 12/10/24 12:09 12/10/24 12:09
Physical Exam
Physical Exam
Constitutional: No Acute Distress
Cardiovascular: Regular Rate, S1/S2 and Murmur (Grade 2/6 systolic ejection murmur right upper sternal border); Negative Rub
Pulmonary: Clear and Symmetric; Negative Wheezes, Rales or Rhonchi
Gastrointestinal: Soft, Non Tender, Non Distended and Normal Bowel Sounds
Skin: Warm and Dry; Negative Rash or Jaundice
Neurological: Awake and AO x 3
Psychological: Calm
Lab / Diagnostic Study Results
12/10/24 07:20
12/10/24 08:33
Abs Immat Gran (auto) 0.1 10^3/uL (0-0.05) H 12/04/24 05:31
Absolute Neuts (auto) 11.1 10^3/uL (1.4-6.5) H 12/04/24 05:31
Absolute Lymphs (auto) 1.1 10^3/uL (1.2-3.4) L 12/04/24 05:31
Absolute Monos (auto) 0.8 10^3/uL (0.1-0.6) H 12/04/24 05:31
Absolute Basos (auto) 0.0 10^3/uL (0-0.2) 12/04/24 05:31
Immature Gran % 0.5 % (0-0.5) 12/04/24 05:31
Neutrophils % 84.3 % (42.2-75.2) H 12/04/24 05:31
Lymphocytes % 8.5 % (20.5-51.1) L 12/04/24 05:31
Monocytes % 5.8 % (1.7-9.3) 12/04/24 05:31
Eosinophils % 0.6 % (0-6) 12/04/24 05:31
Basophils % 0.3 % (0-2) 12/04/24 05:31
Ur Squamous Epith Cells 3-5 /LPF (Few) 12/08/24 16:09
Microbiology Results
Micro:
12/08/24 16:09 Urine Culture - Preliminary
Urine Proteus species
Assessment / Plan
79-year-old female with PMH of colon cancer, bilateral TKR, left total hip replacement, chronic neck and back pain presented with right hip pain and was subsequently discovered to have UTI
Assessment/plan:
#?Catheter associated UTI 2/2 Proteus species vs community-acquired
#History of recurrent UTIs
#Right total hip arthroplasty
- Patient is asymptomatic.
- Given multiple allergies to penicillin, ampicillin, cephalosporin (angioedema)-will continue aztreonam for now.
- Will consider Bactrim to complete course at discharge.
- Will follow clinically.
[2024-12-10] MEDS: ABILIFY 2 MG PO (21:07)
[2024-12-10] MEDS: ZANAFLEX 4 MG PO (21:07)
[2024-12-10] MEDS: ZYRTEC 5 MG PO (21:08)
[2024-12-10] MEDS: SINGULAIR 10 MG PO (21:09)
[2024-12-11] VITALS (8 sets, daily range): BP systolic 100–151; BP diastolic 50–78; PULSE 81; O2SAT 94
[2024-12-11] MEDS: ROXICODONE 5 MG PO (02:05)
[2024-12-11] MEDS: STERILE WATER FOR INJECTION 10 ML IV ×2 (04:40→11:59)
[2024-12-11] MEDS: AZACTAM 1000 MG IV ×2 (04:40→11:57)
[2024-12-11] MEDS: SYNTHROID 150 MCG PO (06:25)
[2024-12-11] MEDS: SYMBICORT 160/4.5 MCG INHALER 2 PUFF INH ×2 (07:16→20:08)
[2024-12-11] MEDS: SPIRIVA RESPIMAT 2.5 MCG 2 PUFF INH (07:16)
--- NOTE | 2024-12-11 07:26 | W.PN.HOSP.TC ---
Today's Communication/Plan
-
Continue pain management (oxycodone dose increased)
Milk of magnesia
Assessment / Plan
Assessment / Plan
IMPRESSION: This is a 79-year-old female patient with PMH of A-fib on Eliquis and pacemaker, cervical/lumbar DJD, hypothyroidism, Hx of colon cancer and previous Hx of bilateral TKR and left hip replacement who presented to the ED with concerns of
right hip pain.
PLAN:
# Nontraumatic right femoral fracture- R total hip arthroplasty 12/09
#Right knee pain due to right patellar daniel
- CT pelvis: Right femoral neck fracture
- orthopedics consulted (follows with OP)
- anticoagulation Eliquis held pending orthopedic procedure for R hip
- Continue pain management regiment (oxy/IV Dilaudid)
- EKG: Atrial-sensed ventricular-paced rhythm w/ frequent AV dual-paced complexes. Occasional PVCs
- Hb slowly downtrending, monitor
- US b/l LE: neg for DVT
- Continue Lovenox
- PT/OT following
- Increased dose of Oxy 10/15mg for moderate/severe pain
- R patellar daniel: to be followed OP upon discharge, continue consertative treatment
- dispo to SNF pending
#UTI
-whitman placed on 11/06 due to acute retention (no dysuria). Whitman dislodged and replaced on 11/08.
- U/A findings consistent with UTI, culture showing Proteus
- Continue Aztreonam
- ID consulted due to UTI in setting of recent R hip hardware
#Constipation
- mirax daily, hold if loose stools
- continue other prn bowel regiment
- Milk of magnesia today, last bowel movement on 12/07
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
-Na 128, serum osm 270 low, creatinine 1.1, urine osm wnl, urine na 16
- likely due to SIADH from stress/pain of fracture
- Continue FR to 48oz
- Sodium returning to baseline
- creatinine baseline
#Cervical and Lumbar DJD
- Lumbar spine x-ray today: Moderate to severe multilevel degenerative changes of the lumbar spine.
- pt is hydrocodone w/acetaminophen OP-- will hold
- Continue oxy/IV dilaudid
- continue lidocaine patches for lower back
# Paroxysmal Afib with pacemaker
- Hx of cardioversion in 2023
- follows with Dr.Renee Botello OP
- Continue amiodarone
� Continue Eliquis
#Essential HTN
- continue home medications amlodipine and lisinopril
- holding parameters
- Continue lasix for peripheral edema
# Hypothyroidism
- continue home medications
#Hyperlipidemia
-continue statin
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
-continue lyrica
#Depression/Anxiety
-continue home medications duoloxetine, abilify
- Continue home dose Ativan BIDPRN as pt experiencing anxiety (initially was HSPRN due to multiple pain meds)
#BMI >40 due to excess calories
Spoke with Patients on phone and updated him about possible discharge to SNF pending bed availability and pt overall condition.
DVT ppx- Eliquis
FULL CODE
Anticipated Discharge: 24 - 48 hours
Subjective/Interval History
-
Date of Service: December 11, 2024
Patient has concerns about her right knee pain. Feels constipated.
Objective Data
-
Labs:
Laboratory Results
12/11/24
06:00
WBC Pending
Hgb Pending
Hct Pending
Plt Count Pending
Sodium Pending
Potassium Pending
Chloride Pending
Carbon Dioxide Pending
BUN Pending
Creatinine Pending
Glucose Pending
Calcium Pending
Vital Signs:
Vital Signs
Temp Pulse Resp BP Pulse Ox
97.4 F 86 16 130/66 97
12/11/24 03:10 12/11/24 07:21 12/11/24 07:21 12/11/24 03:10 12/11/24 07:21
I&O
12/10/24 12/11/24 12/12/24
06:59 06:59 06:59
Intake Total 1520 / 1520 940 / 940
Balance 1520 / 1520 940 / 940
Review of Systems
-
All other systems: Reviewed and negative
Physical Exam
-
General: No Apparent Distress and Conversant
HEENT: Normocephalic and Atraumatic
Respiratory: Clear to Auscultation
Cardiac: Regular Rhythm and S1/S2
GI: Soft, Nontender and Nondistended
Musculoskeletal: Other (R hip surgical dressing dry and intact)
Skin: Warm and Dry
Neuro: Awake, Alert and Oriented
--- NOTE | 2024-12-11 08:07 | W.PN.ORTHO ---
Today's Communication / Plan
-
PT/OT
Weightbearing as tolerated with walker
Posterior hip precautions
Eliquis for DVT prophylaxis
Current pain control regimen
UTI noted appreciate ID input
Appreciate medical team input
Follow-up orthopedics 2 weeks for skin clip removal
shelter facility once medically stable
Assessment
.
Distal Motor Intact: Yes
Dressing:
Clean, dry and intact.
Plan
.
Surgery / Date: Right GLEN, Aggie, 12/09
DVT Prophylaxis: Other
Activity:
Out of bed.
PT/OT
Discharge Plan: SNF
Subjective
.
.:
Patient resting comfortably.
Vital Signs and Labs
.
Vital Signs and Labs:
Temp Pulse Resp BP Pulse Ox
97.4 F 86 16 130/66 97
12/11/24 03:10 12/11/24 07:21 12/11/24 07:21 12/11/24 03:10 12/11/24 07:21
Non-invasive Hgb result: 11.8
--- NOTE | 2024-12-11 08:16 | W.PN.ID1 ---
Addendum entered and electronically signed by Reny Vega MD 12/11/24 16:47:
I saw and evaluated the patient. I reviewed the resident�s note and agree with findings and plan as documented in the resident�s note with the following additions/corrections:
Subjective:
fever curve improving
bp stable
no events recorded by nursing overnight
Labs reviewed
Urine Culture Final 12/11/24-0858
CC: Greater than 100,000 CFU/ML Proteus mirabilis
Organism 1 Proteus mirabilis
1. Proteus mirabilis
M.I.C. RX
--------- ---
Amoxicillin/Potas. Clavulanate <=8/4 S
Ampicillin <=8 S
Ampicillin/Sulbactam <=4/2 S
Aztreonam <=4 S
Cefazolin <=2 S
Ertapenem <=0.5 S
Ciprofloxacin <=0.25 S
Gentamicin <=2 S
Meropenem <=1 S
Nitrofurantoin-Urine Only >64 R
Piperacillin/Tazobactam <=8 S
Tetracycline >8 R
Tobramycin <=2 S
Trimethoprim/Sulfamethoxazole <=2/38 S
PE:
General: No Apparent Distress
Respiratory: Clear to Auscultation bilaterally and no rales, wheezes or rhonchi
Cardiac: Regular Rhythm and S1/S2, no murmurs gallops or rubs
GI: Soft, Nontender and Nondistended
: no suprapubic tenderness, no cva tenderness
Skin: Warm and Dry
Neuro: Awake
A&P:
CAUTI due to Proteus
Reported allergies to: penicillin/keflex/amoxicillin: lip/tongue swelling; ADR with erythromycin: GI upset
R GLEN 12/09
- suspect aminopenicillin/cephalosporin allergy given reported angioedema which can be part of anaphylaxis, would avoid both penicillins and cephalosporins in this patient
- urine culture 100K proteus
- switch to bactrim x 7 days 12/11-12/17
- hold lisinopril while on bactrim
- follow up with PCP
Original Note:
Date of Service
Date of Service: December 11, 2024
Patient seen and examined sitting comfortably in a chair in no acute distress. She reports that she is frustrated about her right knee pain rated 8/10. Pain does not radiate but does not allow her to move her right knee. Right hip pain is
tolerable. Reports fever of 100.4 overnight which responded to Tylenol. Denies abdominal pain, chest pain, shortness of breath, nausea or vomiting.
Today's Communication
Stop aztreonam.
Start Bactrim for additional 12 days.
Follow fever curve.
Assessment / Plan
79-year-old female with PMH of colon cancer, bilateral TKR, left total hip replacement, chronic neck and back pain presented with right hip pain and was subsequently discovered to have UTI
Assessment/plan:
#Catheter associated UTI 2/2 Proteus Mirabilis
#History of recurrent UTIs
#Right total hip arthroplasty
#Fever
- Patient is asymptomatic.
- UCx with >100K Proteus Mirabilis susceptible to Bactrim.
- Multiple allergies to penicillin, ampicillin, cephalosporin (angioedema).
- Stop aztreonam and switch to Bactrim to complete 14 days course of antibiotics.
- Follow fever curve.
Chief Complaint
-: Fever and UTI
Subjective / Review of Systems
Review of Systems: Fever, No Chills, No Headache, No Cough, No Chest Pain, No Abdominal Pain, No Nausea, No Vomiting and Joint Pain
Vital Signs / Physical Exam
Vital Signs
Vital Signs
Temp Pulse Resp BP Pulse Ox
98.9 F 86 16 129/56 97
12/11/24 07:12 12/11/24 07:21 12/11/24 07:21 12/11/24 07:12 12/11/24 07:21
Physical Exam
Constitutional: No Acute Distress
Cardiovascular: Regular Rate, S1/S2 and Murmur; Negative Rub
Pulmonary: Clear and Symmetric; Negative Wheezes or Rales
Gastrointestinal: Soft, Non Tender, Non Distended and Normal Bowel Sounds (Grade 2/6 systolic ejection murmur right upper sternal border)
Skin: Warm and Dry; Negative Rash or Jaundice
Neurological: Awake and AO x 3
Psychological: Calm
Objective Data
Lab Data
Estimated Creat Clear 72 ml/min 12/10/24 08:33
Most recent labs reviewed.
Microbiology: Report Reviewed
Micro Results:
12/08/24 16:09 Urine Culture - Preliminary
Urine Proteus species
Chest X-Ray: Image Reviewed and Report Reviewed
Care Review
Plan reviewed with: Physician
[2024-12-11 08:30] LABS: Hematocrit 27.2 % (37.0-47.0); Hemoglobin 8.6 g/dL (12.0-16.0); Mean Corp Hgb Conc. 31.6 g/dL (33.0-37.0); Mean Corpuscular Hgb 28.6 pg (27.0-31.0); Mean Corpuscular Volume 90.4 fL (81.0-99.0); Mean Platelet Volume 9.7 fL (7.4-10.4); Platelet Count 259 10^3/uL (130-400); Red Blood Cell Count 3.01 10^6/uL (4.20-5.40); Red Cell Dist. Width 14.1 % (11.5-14.5); White Blood Cell Count 9.8 10^3/uL (4.8-10.8)
[2024-12-11 09:32] LABS: Blood Urea Nitrogen 26 mg/dl (7-17); Calcium 9.7 mg/dl (8.4-10.2); Carbon Dioxide 32 mmol/L (22-30); Chloride 99 mmol/L (98-107); Estimated Creatinine Clearance 72 ml/min; Glucose 96 mg/dl (70-99); Potassium 4.7 mmol/L (3.5-5.1); Sodium 131 mmol/L (135-145); eGFR > 60.00
[2024-12-11] MEDS: VITAMIN B-12 1000 MCG PO (09:40)
[2024-12-11] MEDS: PACERONE 100 MG PO (09:40)
[2024-12-11] MEDS: MIRALAX 17 GRAMS PO (09:40)
[2024-12-11] MEDS: COLACE 100 MG PO ×2 (09:41→20:57)
[2024-12-11] MEDS: SENOKOT 17.2 MG PO ×2 (09:41→20:56)
[2024-12-11] MEDS: ELIQUIS 2.5 MG PO ×2 (09:41→20:58)
[2024-12-11] MEDS: LYRICA 50 MG PO ×2 (09:41→20:58)
[2024-12-11] MEDS: ZESTRIL 5 MG PO (09:45)
[2024-12-11] MEDS: LASIX 40 MG PO (09:45)
[2024-12-11] MEDS: NORVASC 2.5 MG PO (09:45)
[2024-12-11] MEDS: CYMBALTA DELAYED RELEASE 90 MG PO (09:46)
[2024-12-11] MEDS: LYRICA 75 MG PO ×3 (09:46→20:57)
[2024-12-11] MEDS: ROXICODONE 10 MG PO ×3 (09:48→21:05)
--- NOTE | 2024-12-11 10:13 | W.PN.UPDATE ---
Update Note
Progress Note Update
I saw and evaluated the patient. I reviewed the resident�s note and agree with findings and plan as documented in the resident�s note with the following additions/corrections:
Subjective:
fever curve improving
bp stable
no events recorded by nursing overnight
Labs reviewed
Urine Culture Final 12/11/24-08
CC: Greater than 100,000 CFU/ML Proteus mirabilis
Organism 1 Proteus mirabilis
1. Proteus mirabilis
M.I.C. RX
--------- ---
Amoxicillin/Potas. Clavulanate <=8/4 S
Ampicillin <=8 S
Ampicillin/Sulbactam <=4/2 S
Aztreonam <=4 S
Cefazolin <=2 S
Ertapenem <=0.5 S
Ciprofloxacin <=0.25 S
Gentamicin <=2 S
Meropenem <=1 S
Nitrofurantoin-Urine Only >64 R
Piperacillin/Tazobactam <=8 S
Tetracycline >8 R
Tobramycin <=2 S
Trimethoprim/Sulfamethoxazole <=2/38 S
PE:
General: No Apparent Distress
Respiratory: Clear to Auscultation bilaterally and no rales, wheezes or rhonchi
Cardiac: Regular Rhythm and S1/S2, no murmurs gallops or rubs
GI: Soft, Nontender and Nondistended
: no suprapubic tenderness, no cva tenderness
Skin: Warm and Dry
Neuro: Awake
A&P:
CAUTI due to Proteus
Reported allergies to: penicillin/keflex/amoxicillin: lip/tongue swelling; ADR with erythromycin: GI upset
R GLEN 12/09
- suspect aminopenicillin/cephalosporin allergy given reported angioedema which can be part of anaphylaxis, would avoid both penicillins and cephalosporins in this patient
- urine culture 100K proteus
- switch to bactrim x 7 days 12/11-12/17
- hold lisinopril while on bactrim
- follow up with PCP
[2024-12-11] MEDS: MILK OF MAGNESIA 30 ML PO (11:44)
--- NOTE | 2024-12-11 12:25 | CM ---
Patient seen at bedside with physicians on . Patient with concerns and discussed options for SNF. Per physician patient most likely for discharge tomorrow due to pain issues. CM will continue to follow for discharge planning needs.
Plan; SNF: pending bed availability at [facility], [place] or [facility].
[2024-12-11] MEDS: LIPITOR 10 MG PO (17:17)
[2024-12-11] MEDS: ABILIFY 2 MG PO (20:55)
[2024-12-11] MEDS: ZYRTEC 5 MG PO (20:56)
[2024-12-11] MEDS: BACTRIM DS 800 MG/160 MG 1 TABLET PO (20:57)
[2024-12-11] MEDS: SINGULAIR 10 MG PO (21:04)
[2024-12-11] MEDS: ZANAFLEX 4 MG PO (21:04)
[2024-12-12] VITALS (9 sets, daily range): BP systolic 89–146; BP diastolic 49–85
[2024-12-12] MEDS: ROXICODONE 10 MG PO ×2 (06:01→14:11)
[2024-12-12] MEDS: SYNTHROID 150 MCG PO (06:02)
--- NOTE | 2024-12-12 07:28 | W.PN.HOSP.TC ---
Today's Communication/Plan
-
abd xray
continue pain management
Assessment / Plan
Assessment / Plan
IMPRESSION: This is a 79-year-old female patient with PMH of A-fib on Eliquis and pacemaker, cervical/lumbar DJD, hypothyroidism, Hx of colon cancer and previous Hx of bilateral TKR and left hip replacement who presented to the ED with concerns of
right hip pain.
PLAN:
# Nontraumatic right femoral fracture- R total hip arthroplasty 12/09
#Right knee pain due to right patellar daniel
- CT pelvis: Right femoral neck fracture
- orthopedics consulted (follows with OP)
- anticoagulation Eliquis held pending orthopedic procedure for R hip
- Continue pain management regiment (oxy/IV Dilaudid)
- EKG: Atrial-sensed ventricular-paced rhythm w/ frequent AV dual-paced complexes. Occasional PVCs
- Hb slowly downtrending, monitor
- US b/l LE: neg for DVT
- Continue Lovenox
- PT/OT following
- continue oxy regiment
- R patellar daniel: orthopedic team made aware of pt/family concerns of R knee and recommended knee immobilizer
- dispo to SNF pending
#UTI
- whitman placed on 11/06 due to acute retention (no dysuria). Whitman dislodged and replaced on 11/08.
- U/A findings consistent with UTI, culture showing Proteus
- Discontinued Aztreonam
- Continue Bactrim
- ID consulted due to UTI in setting of recent R hip hardware
#Constipation
- mirax daily, hold if loose stools
- continue other prn bowel regiment
- Last bowel movement on 12/07
- MoM/bowel regiment unsuccessful, enema with only pellets
- will order abd xray
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
-Na 128, serum osm 270 low, creatinine 1.1, urine osm wnl, urine na 16
- likely due to SIADH from stress/pain of fracture
- Continue FR to 48oz
- Sodium returning to baseline
- creatinine baseline
#Cervical and Lumbar DJD
- Lumbar spine x-ray today: Moderate to severe multilevel degenerative changes of the lumbar spine.
- pt is hydrocodone w/acetaminophen OP-- will hold
- Continue oxy/IV dilaudid
- continue lidocaine patches for lower back
# Paroxysmal Afib with pacemaker
- Hx of cardioversion in 2023
- follows with Dr.Renee Botello OP
- Continue amiodarone
� Continue Eliquis
#Essential HTN
- continue home medications amlodipine and lisinopril
- holding parameters
- Continue lasix for peripheral edema
# Hypothyroidism
- continue home medications
#Hyperlipidemia
-continue statin
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
-continue lyrica
#Depression/Anxiety
-continue home medications duoloxetine, abilify
- Continue home dose Ativan BIDPRN as pt experiencing anxiety (initially was HSPRN due to multiple pain meds)
#BMI >40 due to excess calories
Spoke with and son at bedside.
DVT ppx- Eliquis
FULL CODE
Anticipated Discharge: 24 - 48 hours
Subjective/Interval History
-
Date of Service: December 12, 2024
Objective Data
-
Labs:
Laboratory Results
12/12/24
07:11
WBC Pending
Hgb Pending
Hct Pending
Plt Count Pending
Sodium Pending
Potassium Pending
Chloride Pending
Carbon Dioxide Pending
BUN Pending
Creatinine Pending
Glucose Pending
Calcium Pending
Vital Signs:
Vital Signs
Temp Pulse Resp BP Pulse Ox
99.4 F 74 17 117/64 99
12/12/24 03:10 12/12/24 03:10 12/12/24 03:10 12/12/24 03:10 12/12/24 03:10
I&O
12/11/24 12/12/24 12/13/24
06:59 06:59 06:59
Intake Total 940 / 940 1140 / 1140
Balance 940 / 940 1140 / 1140
[2024-12-12 07:31] LABS: % Basophils 0.7 % (0-2); % Eosinophils 3.3 % (0-6); % Immature Granulocytes 2.2 % (0-0.5); % Lymphocytes 13.1 % (20.5-51.1); % Monocytes 13.9 % (1.7-9.3); % Neutrophils 66.8 % (42.2-75.2); Absolute Basophils 0.1 10^3/uL (0-0.2); Absolute Eosinophils 0.3 10^3/uL (0-0.7); Absolute Immature Granulocytes 0.2 10^3/uL (0-0.05); Absolute Lymphocytes 1.3 10^3/uL (1.2-3.4); Absolute Monocytes 1.4 10^3/uL (0.1-0.6); Absolute Neutrophils 6.5 10^3/uL (1.4-6.5); Hematocrit 26.3 % (37.0-47.0); Hemoglobin 8.5 g/dL (12.0-16.0); Mean Corp Hgb Conc. 32.3 g/dL (33.0-37.0); Mean Corpuscular Hgb 28.9 pg (27.0-31.0); Mean Corpuscular Volume 89.5 fL (81.0-99.0); Mean Platelet Volume 9.5 fL (7.4-10.4); Nucleated Red Blood Cells % 0 %; Platelet Count 298 10^3/uL (130-400); Red Blood Cell Count 2.94 10^6/uL (4.20-5.40); Red Cell Dist. Width 14.1 % (11.5-14.5); White Blood Cell Count 9.7 10^3/uL (4.8-10.8)
[2024-12-12] MEDS: SYMBICORT 160/4.5 MCG INHALER 2 PUFF INH ×2 (07:40→18:12)
[2024-12-12] MEDS: SPIRIVA RESPIMAT 2.5 MCG 2 PUFF INH (07:40)
--- NOTE | 2024-12-12 08:04 | W.PN.ID1 ---
Addendum entered and electronically signed by Dasha Egan MD 12/12/24 15:07:
I saw and evaluated the patient. I reviewed the resident�s note and agree with findings and plan as documented in the resident�s note.
S: no urine symptoms. Tolerating T/sulfa.
O: K normal
A&P:
# CAUTI due to Protej carlos flowers dc'd
# Reported allergies to: penicillin/keflex/amoxicillin: lip/tongue swelling; ADR with erythromycin: GI upset
#R GLEN 12/09
- suspect aminopenicillin/cephalosporin allergy given reported angioedema which can be part of anaphylaxis, would avoid both penicillins and cephalosporins in this patient
- urine culture 100K proteus
- continue bactrim x 7 days 12/11-12/17
- hold lisinopril while on bactrim
- follow up with PCP
Original Note:
Date of Service
Date of Service: December 12, 2024
Patient seen and examined with son and by bedside. Nursing reported that patient is doing better but sometimes gives up on herself. Reports that her right hip pain is well-controlled but still reports of right knee pain worse with
ambulation. Patient was tearful and stated 'honestly, I am afraid of dying'. Long discussion with patient and family about issues of referred pain, baby steps with physical therapy and setting short-term goals towards recovery especially while at
rehab.
She denies fever, chills, rigor, shortness of breath, chest pain, nausea, abdominal pain, vomiting.
Today's Communication
Continue Bactrim for 7 days, last day 12/17/2024
Hold lisinopril on Bactrim
Follow-up with PCP
Assessment / Plan
79-year-old female with PMH of colon cancer, bilateral TKR, left total hip replacement, chronic neck and back pain presented with right hip pain and was subsequently discovered to have UTI
Assessment/plan:
#Catheter associated UTI 2/2 Proteus Mirabilis
#History of recurrent UTIs
#Right total hip arthroplasty
#Fever
- No fever in the past 24 hours.
- Patient is asymptomatic.
- UCx with >100K Proteus Mirabilis susceptible to Bactrim.
- Multiple allergies to penicillin, ampicillin, cephalosporin (angioedema), would avoid all cephalosporins and penicillins.
- Continue Bactrim, last day 12/17/2024.
- Hold lisinopril with Bactrim.
- Follow-up with PCP
Chief Complaint
-: Fever and UTI
Subjective / Review of Systems
Review of Systems: No Fever, No Chills, No Cough, No Chest Pain, No Abdominal Pain, No Nausea, No Vomiting and Joint Pain
Vital Signs / Physical Exam
Vital Signs
Vital Signs
Temp Pulse Resp BP Pulse Ox
98.7 F 72 16 89/49 95
12/12/24 07:20 12/12/24 07:49 12/12/24 07:49 12/12/24 07:20 12/12/24 07:49
Physical Exam
Constitutional: No Acute Distress
Cardiovascular: Regular Rate, S1/S2 and Murmur; Negative Rub
Pulmonary: Clear and Symmetric; Negative Wheezes or Rales
Gastrointestinal: Soft, Non Tender, Non Distended and Normal Bowel Sounds (Grade 2/6 systolic ejection murmur right upper sternal border)
Skin: Warm and Dry; Negative Rash or Jaundice
Neurological: Awake and AO x 3
Psychological: Calm
Objective Data
Lab Data
Lab Results
12/12/24 07:11
Estimated Creat Clear 72 ml/min 12/11/24 07:53
Most recent labs reviewed.
Microbiology: Report Reviewed
Micro Results:
12/08/24 16:09 Urine Culture - Final
Urine Proteus mirabilis
Chest X-Ray: Image Reviewed and Report Reviewed
Care Review
Plan reviewed with: Physician
[2024-12-12 08:24] LABS: Blood Urea Nitrogen 38 mg/dl (7-17); Calcium 9.6 mg/dl (8.4-10.2); Carbon Dioxide 24 mmol/L (22-30); Chloride 99 mmol/L (98-107); Estimated Creatinine Clearance 44 ml/min; Glucose 94 mg/dl (70-99); Potassium 4.5 mmol/L (3.5-5.1); Sodium 129 mmol/L (135-145); eGFR 42.35
[2024-12-12] MEDS: LYRICA 75 MG PO ×3 (10:16→22:38)
[2024-12-12] MEDS: MIRALAX 17 GRAMS PO (10:16)
[2024-12-12] MEDS: COLACE 100 MG PO ×2 (10:17→20:50)
[2024-12-12] MEDS: CYMBALTA DELAYED RELEASE 90 MG PO (10:17)
[2024-12-12] MEDS: BACTRIM DS 800 MG/160 MG 1 TABLET PO ×2 (10:17→20:50)
[2024-12-12] MEDS: LASIX 40 MG PO (10:17)
[2024-12-12] MEDS: NORVASC PO (10:18)
[2024-12-12] MEDS: SENOKOT 17.2 MG PO ×2 (10:18→20:50)
[2024-12-12] MEDS: LYRICA 50 MG PO ×2 (10:19→20:50)
[2024-12-12] MEDS: PACERONE 100 MG PO (10:19)
[2024-12-12] MEDS: VITAMIN B-12 1000 MCG PO (10:20)
[2024-12-12] MEDS: FLEET MINERAL OIL ENEMA 133 ML RECTAL (10:21)
[2024-12-12] MEDS: ELIQUIS 5 MG PO ×2 (10:23→20:50)
[2024-12-12] MEDS: ELIQUIS PO (10:55)
--- NOTE | 2024-12-12 12:19 | CM ---
Addendum entered by Celine Mchugh 12/12/24 15:53:
IF patient able to go to [facility] SNF please call report to [phone]/fax clinicals to [phone] and call for the nursing loading supervisor at [phone]. Patient has stated she wants to go to [facility] as of today but if she changes her mind and requests
[facility] CM will need to call to determine if bed is still available. IMM given to patient .
Addendum entered by Celine Mchugh 12/12/24 15:48:
Per nursing patient has not pooped today and is going for xray to determine next steps. CM spoke with Dr. Marcial and he was going to talk to family about options. CM updated [facility] that patient had not yet gone and asked about options for weekend.
Awaiting response.
Original Note:
Patient seen at bedside with physicians and patient son, . IMM provided for patient family to review. Patient accepted to [facility] for SNF today. Patient family to talk to Dr. Marcial and discuss concerns about knee. Patient also
awaiting bowel movement for discharge. CM will continue to follow for discharge planning needs.
Plan;pending physician assessment and family choice.
--- NOTE | 2024-12-12 12:50 | W.PN.UPDATE ---
Update Note
Progress Note Update
I had a lengthy conversation with Mrs. Muhammad and her family at the bedside today. She is status post right total hip replacement for femoral neck fracture and also has chronic right knee pain. She is ready for discharge. Unfortunately, she
would be unable to comply with a vigorous acute care rehabilitation program and is not functional enough to go home at this time with visiting nurse/physical therapy services. Therefore, retirement facility placement is likely the most
appropriate direction. It is my understanding there is a bed available at [facility] ([place] I suggest she go there and work on rehabilitation over the next weeks to try to improve her function such that she can safely return home. Also, a knee
immobilizer could be helpful in managing her right knee pain as she rehabilitates after right hip surgery. We will make sure this is provided to her.
[2024-12-12] MEDS: LIPITOR 10 MG PO (17:48)
[2024-12-12] MEDS: ZANAFLEX 4 MG PO (22:39)
[2024-12-12] MEDS: ZYRTEC 5 MG PO (22:39)
[2024-12-12] MEDS: ABILIFY 2 MG PO (22:39)
[2024-12-12] MEDS: SINGULAIR 10 MG PO (22:39)
[2024-12-12] MEDS: ROXICODONE 5 MG PO (22:41)
[2024-12-13 03:17] VITALS: BP 99/49
[2024-12-13] MEDS: SYNTHROID 300 MCG PO (06:11)
[2024-12-13 07:40] VITALS: BP 127/58
[2024-12-13] MEDS: SPIRIVA RESPIMAT 2.5 MCG 2 PUFF INH (08:17)
[2024-12-13] MEDS: SYMBICORT 160/4.5 MCG INHALER 2 PUFF INH ×2 (08:18→18:03)
[2024-12-13] MEDS: COLACE 100 MG PO ×2 (09:29→22:03)
[2024-12-13] MEDS: LYRICA 50 MG PO ×2 (09:30→20:29)
[2024-12-13] MEDS: BACTRIM DS 800 MG/160 MG 1 TABLET PO (09:30)
[2024-12-13] MEDS: SENOKOT 17.2 MG PO ×2 (09:31→22:02)
[2024-12-13] MEDS: LYRICA 75 MG PO ×3 (09:32→22:01)
[2024-12-13] MEDS: LASIX 40 MG PO (09:32)
[2024-12-13] MEDS: PACERONE 100 MG PO (09:32)
[2024-12-13] MEDS: ELIQUIS 5 MG PO (09:33)
[2024-12-13] MEDS: VITAMIN B-12 1000 MCG PO (09:33)
[2024-12-13] MEDS: CYMBALTA DELAYED RELEASE 90 MG PO (09:33)
[2024-12-13] MEDS: DUPHALAC/CHRONULAC 20 GRAMS PO ×3 (09:34→22:01)
[2024-12-13] MEDS: MIRALAX 17 GRAMS PO (09:35)
--- NOTE | 2024-12-13 09:40 | W.PN.ID1 ---
Date of Service
Date of Service: December 13, 2024
Today's Communication
Change Bactrim to cipro
Assessment / Plan
79-year-old female with PMH of colon cancer, bilateral TKR, left total hip replacement, chronic neck and back pain presented with right hip pain and was subsequently discovered to have UTI
Assessment/plan:
#Catheter associated UTI 2/2 Proteus Mirabilis, whitman removed
# Acute elev Cr
#History of recurrent UTIs
#s/p Right total hip arthroplasty
#Fever - resolved
- UCx with >100K Proteus Mirabilis susceptible to Bactrim.
- Multiple allergies to penicillin, ampicillin, cephalosporin (angioedema), would avoid all cephalosporins and penicillins.
- Elevated Cr due to Bactrim
-DC Bactrim
- switch to cipro 250 mg po bid last day 12/15/2024 ( 7d total abx)
- Monitor QTc
- Can resume lisinopril since she is off Bactrim
Chief Complaint
-: Fever and UTI
Subjective / Review of Systems
Waiting to have BM.
Vital Signs / Physical Exam
Vital Signs
Vital Signs
Temp Pulse Resp BP Pulse Ox
98.9 F 85 16 127/58 95
12/13/24 07:40 12/13/24 08:42 12/13/24 08:42 12/13/24 07:40 12/13/24 08:42
Physical Exam
Constitutional: No Acute Distress
Pulmonary: Clear
Gastrointestinal: Soft, Non Tender and Non Distended
Wound: Other (right hip dressing + blood)
Neurological: AO x 3
Objective Data
Lab Data
Lab Results
12/12/24 07:11
12/12/24 07:11
Estimated Creat Clear 44 ml/min 12/12/24 07:11
Most recent labs reviewed.
Micro Results:
12/08/24 16:09 Urine Culture - Final
Urine Proteus mirabilis
Care Review
Plan reviewed with: Physician (Dr. Britni Acosta)
[2024-12-13 10:37] LABS: Hematocrit 27.1 % (37.0-47.0); Hemoglobin 8.8 g/dL (12.0-16.0); Mean Corp Hgb Conc. 32.5 g/dL (33.0-37.0); Mean Corpuscular Hgb 28.2 pg (27.0-31.0); Mean Corpuscular Volume 86.9 fL (81.0-99.0); Mean Platelet Volume 9.3 fL (7.4-10.4); Platelet Count 348 10^3/uL (130-400); Red Blood Cell Count 3.12 10^6/uL (4.20-5.40); Red Cell Dist. Width 14.1 % (11.5-14.5); White Blood Cell Count 9.5 10^3/uL (4.8-10.8)
[2024-12-13 10:54] LABS: Blood Urea Nitrogen 35 mg/dl (7-17); Calcium 9.6 mg/dl (8.4-10.2); Carbon Dioxide 28 mmol/L (22-30); Chloride 97 mmol/L (98-107); Estimated Creatinine Clearance 52 ml/min; Glucose 119 mg/dl (70-99); Potassium 4.3 mmol/L (3.5-5.1); Sodium 128 mmol/L (135-145); eGFR 51.75
[2024-12-13 11:25] VITALS: BP 111/57
--- NOTE | 2024-12-13 11:41 | W.PN.HOSP.TC ---
Today's Communication/Plan
-
discharge planning to rehab - for tomorrow
Assessment / Plan
Assessment / Plan
1. Non-traumatic right femoral fracture status post right total hip arthroplasty on 12/09 -orthopedic surgery following and cleared for rehab placement. Eliquis has been resumed back. Case management working on rehab placement. Patient having
bleeding at the right hip surgical site, holding Eliquis for tonight and tomorrow morning
2. Right knee pain from patella daniel -discussed with orthopedic surgery and will require conservative management with pain control/rehab at this point. Patient hesitant to take a higher dose of oxycodone and has been changed to 5/10mg.
Aggie/orthopedic surgeon discussed care plan with patient family.
3. Narcotic induced constipation -last bowel movement 5 days back. No improvement with oral MiraLAX/milk of mag. Enema round provided with few pellets of hard stool coming out. A follow-up abdominal x-ray showed moderate stool burden.
Maintaining on oral lactulose/MiraLAX for now
4. UTI, urinary retention -Azevedo was placed on 11/06 which was exchanged on UA showing bacteriuria. ID involved in care and patient on Aztreonam therapy, will be switched to oral abx at discharge.
5. EVANS/hyponatremia from ADH excess -renal function at baseline continue monitoring. Sodium 131. Continue monitoring
Ongoing efforts for rehab placement, pain control remains main rosmery to cross at this stage.
Anticipated Discharge: Within 24 hours
Subjective/Interval History
-
Date of Service: December 13, 2024
Resting comfortably in bed
Denies abdominal pain/nausea/vomiting
Small bowel movement yesterday
Some bleeding at right hip surgical site dressing needed to be changed overnight
Objective Data
-
Labs:
Laboratory Results
12/13/24
10:15
WBC 9.5
Hgb 8.8 L
Hct 27.1 L
Plt Count 348
Sodium 128 L
Potassium 4.3
Chloride 97 L
Carbon Dioxide 28
BUN 35 H
Creatinine 1.1 H
Glucose 119 H
Calcium 9.6
Vital Signs:
Vital Signs
Temp Pulse Resp BP Pulse Ox
98.9 F 85 16 127/58 95
12/13/24 07:40 12/13/24 08:42 12/13/24 08:42 12/13/24 07:40 12/13/24 08:42
I&O
12/12/24 12/13/24 12/14/24
06:59 06:59 06:59
Intake Total 1140 / 1140 1100 / 1100
Balance 1140 / 1140 1100 / 1100
Review of Systems
-
Respiratory: Reports No Symptoms
Cardiac: Reports No Symptoms
Abdomen/GI: Reports No Symptoms
Physical Exam
-
General: No Apparent Distress and Conversant
Cardiac: Regular Rhythm and S1/S2
GI: Soft, Nontender and Nondistended
Musculoskeletal: Other (R hip surgical dressing. dried blood )
Neuro: Awake, Alert and Oriented
[2024-12-13 12:37] VITALS: O2SAT 96
[2024-12-13] MEDS: ROXICODONE 5 MG PO ×2 (12:37→22:01)
[2024-12-13 15:10] VITALS: BP 148/59
[2024-12-13] MEDS: ATIVAN 1 MG PO (17:40)
[2024-12-13] MEDS: LIPITOR 10 MG PO (17:40)
[2024-12-13] MEDS: CIPRO 250 MG PO (20:29)
[2024-12-13] MEDS: ZANAFLEX 4 MG PO (22:02)
[2024-12-13] MEDS: ZYRTEC 5 MG PO (22:02)
[2024-12-13] MEDS: SINGULAIR 10 MG PO (22:02)
[2024-12-13] MEDS: ABILIFY 2 MG PO (22:02)
[2024-12-13 23:30] VITALS: BP 99/39
[2024-12-14] MEDS: SYNTHROID 300 MCG PO (05:40)
[2024-12-14 07:00] LABS: Hemoglobin 9.1 g/dL (12.0-16.0); Mean Corp Hgb Conc. 32.5 g/dL (33.0-37.0); Mean Corpuscular Hgb 28.6 pg (27.0-31.0); Mean Corpuscular Volume 88.1 fL (81.0-99.0); Mean Platelet Volume 9.4 fL (7.4-10.4); Platelet Count 437 10^3/uL (130-400); Red Blood Cell Count 3.18 10^6/uL (4.20-5.40); Red Cell Dist. Width 13.9 % (11.5-14.5)
[2024-12-14 07:12] VITALS: BP 112/50
[2024-12-14 07:43] LABS: Blood Urea Nitrogen 22 mg/dl (7-17); Calcium 9.9 mg/dl (8.4-10.2); Carbon Dioxide 26 mmol/L (22-30); Chloride 98 mmol/L (98-107); Estimated Creatinine Clearance 72 ml/min; Glucose 96 mg/dl (70-99); Potassium 4.8 mmol/L (3.5-5.1); Sodium 130 mmol/L (135-145); eGFR > 60.00
[2024-12-14] MEDS: SPIRIVA RESPIMAT 2.5 MCG 2 PUFF INH (07:55)
[2024-12-14] MEDS: SYMBICORT 160/4.5 MCG INHALER 2 PUFF INH ×2 (07:55→18:02)
[2024-12-14] MEDS: DUPHALAC/CHRONULAC 20 GRAMS PO (08:05)
[2024-12-14] MEDS: CYMBALTA DELAYED RELEASE 90 MG PO (08:06)
[2024-12-14] MEDS: LYRICA 50 MG PO ×2 (08:06→19:50)
[2024-12-14] MEDS: LYRICA 75 MG PO ×3 (08:06→21:46)
[2024-12-14] MEDS: PACERONE 100 MG PO (08:06)
[2024-12-14] MEDS: LASIX 40 MG PO (08:06)
[2024-12-14] MEDS: CIPRO 250 MG PO ×2 (08:06→19:50)
[2024-12-14] MEDS: VITAMIN B-12 1000 MCG PO (08:06)
[2024-12-14] MEDS: MIRALAX 17 GRAMS PO (08:08)
[2024-12-14] MEDS: COLACE 100 MG PO ×2 (08:08→19:50)
[2024-12-14] MEDS: SENOKOT 17.2 MG PO ×2 (08:08→19:50)
--- NOTE | 2024-12-14 11:14 | W.PN.ID1 ---
Date of Service
Date of Service: December 14, 2024
Today's Communication
Continue cipro.
Follow QTc this afternoon.
Assessment / Plan
79-year-old female with PMH of colon cancer, bilateral TKR, left total hip replacement, chronic neck and back pain presented with right hip pain and was subsequently discovered to have UTI
Assessment/plan:
#Catheter associated UTI 2/2 Proteus Mirabilis, whitman removed
# EVANS resolved off Bactrim
#History of recurrent UTIs
#s/p Right total hip arthroplasty
#Fever - resolved
- UCx with >100K Proteus Mirabilis susceptible to Bactrim.
- Multiple allergies to penicillin, ampicillin, cephalosporin (angioedema), would avoid all cephalosporins and penicillins.
- Bactrim dc'd 12/13 due to EVANS. EVANS resolved off Bactrim
- Continue cipro 250 mg po bid, last day 12/15/2024 ( 7d total appropriate abx)
- QTc 516. Repeat ECG this afternoon
- Can resume lisinopril since she is off Bactrim
Chief Complaint
-: UTI
Subjective / Review of Systems
Tolerating cipro.
Vital Signs / Physical Exam
Vital Signs
Vital Signs
Temp Pulse Resp BP Pulse Ox
98.2 F 69 16 112/50 100
12/14/24 07:12 12/14/24 07:56 12/14/24 07:56 12/14/24 07:12 12/14/24 07:56
Physical Exam
Constitutional: No Acute Distress
Cardiovascular: Regular Rate and S1/S2
Pulmonary: Clear
Gastrointestinal: Soft, Non Tender and Non Distended
Genito-Urinary: Negative Whitman or CVA Tenderness
Wound: Other
Neurological: AO x 3
Objective Data
Lab Data
Lab Results
12/14/24 06:02
12/14/24 06:02
Estimated Creat Clear 72 ml/min 12/14/24 06:02
Most recent labs reviewed.
Micro Results:
12/08/24 16:09 Urine Culture - Final
Urine Proteus mirabilis
Care Review
Plan reviewed with: Physician (Dr. Britni godwin)
--- NOTE | 2024-12-14 12:35 | CM ---
CM reviewed chart. Updated clinical sent to SNF's of choice. Pt now stating first choice is [facility].
Bed offers still pending. Pt, MD and RN aware.
Anticipated dc within 24hrs pending the above.
CM spoke will continue to follow to ensure a safe and timely dc.
[2024-12-14] MEDS: ROXICODONE 5 MG PO ×2 (12:44→22:18)
--- NOTE | 2024-12-14 14:14 | W.PN.HOSP.TC ---
Today's Communication/Plan
-
Discharge planning for rehab
Assessment / Plan
Assessment / Plan
1. Non-traumatic right femoral fracture status post right total hip arthroplasty on 12/09 -orthopedic surgery following and cleared for rehab placement. Eliquis has been resumed back. Case management working on rehab placement. Patient having
bleeding at the right hip surgical site, held Eliquis from 12/13 evening dose. Resumption tomorrow morning if no further bleeding, right hip dressing needed to be changed.
2. Right knee pain from patella daniel -discussed with orthopedic surgery and will require conservative management with pain control/rehab at this point. Patient hesitant to take a higher dose of oxycodone and has been changed to 5/10mg.
Aggie/orthopedic surgeon discussed care plan with patient family.
3. Narcotic induced constipation -last bowel movement 5 days back. Abdominal x-ray showing moderate stool burden. have good BM nice with enema/lactulose. continue MiraLAX/senna for now
4. UTI, urinary retention -Azevedo was placed on 11/06 which was exchanged on UA showing bacteriuria. ID involved in care and patient on Aztreonam therapy, will be switched to oral abx at discharge.
5. EVANS/hyponatremia from ADH excess -renal function at baseline continue monitoring. Sodium 131. Continue monitoring
Informed case management for potential discharge although no bed available today. Will be reattempted to be discharged tomorrow
Anticipated Discharge: Today
Subjective/Interval History
-
Date of Service: December 14, 2024
Resting comfortably in bed
No nausea or vomiting
Right hip dressing was changed overnight
Objective Data
-
Labs:
Laboratory Results
12/14/24
06:02
WBC 9.0
Hgb 9.1 L
Hct 28.0 L
Plt Count 437 H D
Sodium 130 L
Potassium 4.8
Chloride 98
Carbon Dioxide 26
BUN 22 H
Creatinine 0.8
Glucose 96
Calcium 9.9
Vital Signs:
Vital Signs
Temp Pulse Resp BP Pulse Ox
98.2 F 69 16 112/50 100
12/14/24 07:12 12/14/24 07:56 12/14/24 07:56 12/14/24 07:12 12/14/24 07:56
I&O
12/13/24 12/14/24 12/15/24
06:59 06:59 06:59
Intake Total 1100 / 1100 960 / 960 240 / 240
Balance 1100 / 1100 960 / 960 240 / 240
Review of Systems
-
Respiratory: Reports No Symptoms
Cardiac: Reports No Symptoms
Abdomen/GI: Reports No Symptoms
Physical Exam
-
General: No Apparent Distress and Conversant
Cardiac: Regular Rhythm and S1/S2
GI: Soft, Nontender and Nondistended
Musculoskeletal: Other (R hip surgical dressing. dried blood )
Neuro: Awake, Alert and Oriented
[2024-12-14] MEDS: TYLENOL 650 MG PO (14:24)
[2024-12-14 15:22] VITALS: BP 117/51; BP 161/98; PULSE 71; O2SAT 95
[2024-12-14 15:23] VITALS: BP 117/51; BP 161/98; PULSE 76
[2024-12-14 16:22] VITALS: BP 112/47
[2024-12-14] MEDS: LIPITOR 10 MG PO (17:01)
[2024-12-14] MEDS: ZYRTEC 5 MG PO (21:45)
[2024-12-14] MEDS: ZANAFLEX 4 MG PO (21:45)
[2024-12-14] MEDS: SINGULAIR 10 MG PO (21:45)
[2024-12-14] MEDS: ABILIFY 2 MG PO (21:46)
[2024-12-14 23:20] VITALS: BP 96/38
[2024-12-15] MEDS: ROXICODONE 5 MG PO ×2 (06:17→14:24)
[2024-12-15] MEDS: SYNTHROID 150 MCG PO (06:17)
[2024-12-15 07:25] VITALS: BP 129/53
[2024-12-15 07:28] LABS: Hematocrit 26.2 % (37.0-47.0); Hemoglobin 8.6 g/dL (12.0-16.0); Mean Corp Hgb Conc. 32.8 g/dL (33.0-37.0); Mean Corpuscular Hgb 29.1 pg (27.0-31.0); Mean Corpuscular Volume 88.5 fL (81.0-99.0); Mean Platelet Volume 9.4 fL (7.4-10.4); Platelet Count 403 10^3/uL (130-400); Red Blood Cell Count 2.96 10^6/uL (4.20-5.40); Red Cell Dist. Width 14.1 % (11.5-14.5); White Blood Cell Count 7.5 10^3/uL (4.8-10.8)
[2024-12-15] MEDS: CYMBALTA DELAYED RELEASE 90 MG PO (08:07)
[2024-12-15] MEDS: VITAMIN B-12 1000 MCG PO (08:07)
[2024-12-15] MEDS: CIPRO 250 MG PO (08:08)
[2024-12-15] MEDS: PACERONE 100 MG PO (08:08)
[2024-12-15] MEDS: LYRICA 75 MG PO ×2 (08:08→17:09)
[2024-12-15] MEDS: LASIX 40 MG PO (08:08)
[2024-12-15] MEDS: LYRICA 50 MG PO (08:08)
[2024-12-15] MEDS: SPIRIVA RESPIMAT 2.5 MCG 2 PUFF INH (08:11)
[2024-12-15] MEDS: ELIQUIS 5 MG PO (08:11)
[2024-12-15] MEDS: SYMBICORT 160/4.5 MCG INHALER 2 PUFF INH (08:12)
[2024-12-15] MEDS: COLACE 100 MG PO (08:18)
[2024-12-15] MEDS: SENOKOT PO (08:18)
[2024-12-15] MEDS: MIRALAX PO (08:18)
[2024-12-15 08:26] LABS: Blood Urea Nitrogen 15 mg/dl (7-17); Calcium 9.7 mg/dl (8.4-10.2); Carbon Dioxide 29 mmol/L (22-30); Chloride 100 mmol/L (98-107); Estimated Creatinine Clearance 72 ml/min; Glucose 102 mg/dl (70-99); Sodium 131 mmol/L (135-145); eGFR > 60.00
[2024-12-15] MEDS: MYCOSTATIN ORAL SUSPENSION 5 ML PO ×2 (11:00→17:09)
--- NOTE | 2024-12-15 11:42 | CM ---
Addendum entered by Barbara Saleem RN 12/15/24 13:47:
Plan: Discharge to [facility]. Patient agreeable to w/c w[facility].
Call report to: [phone]
Fax report to: [phone]
Addendum entered by Barbara Saleem RN 12/15/24 11:47:
IMM reviewed.
Original Note:
Reviewed the chart notes and spoke with the patient at the bedside. Updated CM referral with PT/OT notes sent to [facility]. Spoke with [facility] Admissions Liaison. She will review. CM continues to be available to patient/family and is monitoring
medical plan for needs at discharge.
Plan: Discharge to SNF/rehab once bed secured. No precert required.
[2024-12-15 13:33] LABS: COVID-19 Antigen Negative (Negative)
[2024-12-15] MEDS: MYCOSTATIN ORAL SUSPENSION PO (13:35)
--- NOTE | 2024-12-15 13:48 | W.PN.ID1 ---
Date of Service
Date of Service: December 15, 2024
Today's Communication
- has completed an adequate course of antibiotics, stopped
- agree with a 7 day course of nystatin swish and swallow; differential also includes viral infection (covid screen was negative today) and seasonal allergies
- stable for dc from ID perspective
Assessment / Plan
79-year-old female with PMH of colon cancer, bilateral TKR, left total hip replacement, chronic neck and back pain presented with right hip pain and was subsequently discovered to have UTI
Assessment/plan:
#Catheter associated UTI 2/2 Proteus Mirabilis, whitman removed
# EVANS resolved off Bactrim
#History of recurrent UTIs
#s/p Right total hip arthroplasty
#Fever - resolved
- UCx with >100K Proteus Mirabilis susceptible to Bactrim.
- Multiple allergies to penicillin, ampicillin, cephalosporin (angioedema), would avoid cephalosporins and penicillins; she has tolerated aztreonam this admission
- QTc now 540 (paced)
- has completed an adequate course of antibiotics, stopped
- agree with a 7 day course of nystatin swish and swallow; differential also includes viral infection (covid screen was negative today) and seasonal allergies
- stable for dc from ID perspective
Chief Complaint
-: UTI
Subjective / Review of Systems
afebrile
bp stable
complains of mild, new sore throat; reports shes had thrush in the past with broad spectrum antibiotics
qtc (paced) prolonged
Vital Signs / Physical Exam
Vital Signs
Vital Signs
Temp Pulse Resp BP Pulse Ox
98.6 F 63 18 129/53 94
12/15/24 07:25 12/15/24 08:08 12/15/24 07:25 12/15/24 08:08 12/15/24 07:25
Physical Exam
Constitutional: No Acute Distress
Cardiovascular: Regular Rate and S1/S2; Negative Murmur or Rub
Pulmonary: Clear and Symmetric; Negative Wheezes or Rales
Gastrointestinal: Soft, Non Tender, Non Distended and Normal Bowel Sounds
Skin: Warm and Dry; Negative Rash or Jaundice
Objective Data
Lab Data
Lab Results
12/15/24 07:06
12/15/24 07:06
Estimated Creat Clear 72 ml/min 12/15/24 07:06
Most recent labs reviewed.
Micro Results:
12/08/24 16:09 Urine Culture - Final
Urine Proteus mirabilis
Care Review
Plan reviewed with: Physician (Dr De Leon: lex, dispo)
--- NOTE | 2024-12-15 13:58 | W.DCSUMMARY ---
Discharge Summary
Discharge Data
Date of Admission: 12/04/24
Date of Discharge: 12/15/24
Total time spent discharging patient (in min): 50
-
Pending Results: No
Hospital Course
Ms. Muhammad is a 79-year-old female with a medical history of colon cancer (stage III, status post resection and chemo), chemotherapy-induced neuropathy, A-fib (on Eliquis), surgical mitral valve replacement, chronic hyponatremia, COPD, SENA (CPAP at
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 She was found to have a right femoral fracture on CT imaging in the ED. She was
brought to the OR for right GLEN on 12/09 after Eliquis washout.. She tolerated the procedure well and her Eliquis has been resumed. Her Eliquis was temporarily reheld for some oozing from her surgical site which has since resolved. She is having
ongoing right patellar pain which is not new and has been managed in the outpatient setting by her orthopedist. She will be continued with knee immobilizer and has outpatient follow-up with orthopedics. Will continue pain medications as needed.
She was found to have urinary tract infection during this hospitalization and was treated with a course of antibiotics which she has now completed. She is being given a short course of oral nystatin swish and swallow for throat soreness with
possible developing oral thrush in the setting of regular breathing treatments including inhaled corticosteroids. She is medically stable for discharge to SNF for ongoing postoperative rehabilitation. She will need close follow-up in the
outpatient setting with her primary care physician and with orthopedics.
General: No Apparent Distress, Comfortable and Conversant
HEENT: NormoCephalic, Moist mucous membranes, Atraumatic
Respiratory: Clear and Non Labored Respirations
Cardiac: S1/S2 and Regular Rhythm; No Rub or Gallop
GI: Soft, Non Tender, Non Distended and Normal Bowel Sounds
Musculoskeletal: No Edema, no deformity, right hip surgical dressing with mild strikethrough no active bleeding
: NO Azevedo
Neuro: Awake, Alert, Nonfocal/grossly intact
Psych: Calm and Intact Judgment/Insight
Discharge Plan
-
Patient Disposition: Alf/SNF
Discharge Diagnosis/Procedures: Right Femoral Neck Fracture, Urinary Tract Infection, Hyponatremia
Condition: Fair
Diet: Low Cholesterol
Activity: As tolerated and With Walker
Additional Activity: posterior hip precautions x6 weeks
Driving Restrictions: Not until seen by your Dr
Bathing Restrictions: OK to Shower
Activity Restrictions/Additional Instructions:
Ms. Muhammad is a 79-year-old female with a medical history of colon cancer (stage III, status post resection and chemo), chemotherapy-induced neuropathy, A-fib (on Eliquis), surgical mitral valve replacement, chronic hyponatremia, COPD, SENA (CPAP at
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 She was found to have a right femoral fracture on CT imaging in the ED. She was
brought to the OR for right GLEN on 12/09 after Eliquis washout.. She tolerated the procedure well and her Eliquis has been resumed. Her Eliquis was temporarily reheld for some oozing from her surgical site which has since resolved. She is having
ongoing right patellar pain which is not new and has been managed in the outpatient setting by her orthopedist. She will be continued with knee immobilizer and has outpatient follow-up with orthopedics. Will continue pain medications as needed.
She was found to have urinary tract infection during this hospitalization and was treated with a course of antibiotics which she has now completed. She is being given a short course of oral nystatin swish and swallow for throat soreness with
possible developing oral thrush in the setting of regular breathing treatments including inhaled corticosteroids. She is medically stable for discharge to SNF for ongoing postoperative rehabilitation. She will need close follow-up in the
outpatient setting with her primary care physician and with orthopedics.
Referrals:
Joel Marcial MD [[facility]] - in two weeks
Referral Note: Maintain surgical dressing until 7-10 days post-op. Reinforce or change as needed. Staple removal at 2 weeks post-op.
Maria C Tolentino MD [[facility]] - in one week
Prescriptions:
New
nystatin 100,000 unit/mL Suspension
5 ml PO QID 7 Days Qty: 140 0RF
oxycodone 5 mg Tablet
5 mg PO Q4HPRN PRN (Reason: moderate pain) Qty: 15 0RF
Continued
pregabalin 75 MG capsule
75 mg PO TID
lorazepam 1 MG tablet
1 mg PO HS
pregabalin 50 MG capsule
50 mg PO BID
levocetirizine [Xyzal] 5 MG tablet
5 mg PO HS
montelukast 10 MG tablet
10 mg PO HS
Eliquis 5 MG tablet
5 mg PO BID
levothyroxine 150 MCG tablet
150 mcg PO MOTUWETHFR
albuterol sulfate 1 PUFF HFA aerosol inhaler
2 puff inhalation R Q4HPRN PRN (Reason: sob)
duloxetine 60 MG capsule,delayed release(DR/EC)
90 mg PO DAILY
aripiprazole 2 MG tablet
2 mg PO HS
lisinopril 5 mg Tablet
5 mg PO DAILY
Linzess 72 mcg Capsule
72 mcg PO DAILYPRN PRN (Reason: constipation)
amlodipine 5 mg Tablet
2.5 mg PO DAILY
furosemide 40 mg Tablet
40 mg PO DAILY
tizanidine 4 mg Tablet
4 mg PO HS
amiodarone [Pacerone] 200 MG tablet
100 mg PO DAILY
simvastatin [Zocor] 10 mg Tablet
10 mg PO QPM
cyanocobalamin (vitamin B-12) 1,000 mcg Tablet
1,000 mcg PO DAILY
ccbxgfetdh-mhwruqoitvoon-yuhf 50-325-40 mg tablet
1 tab PO Q6HPRN PRN (Reason: headaches)
calcium carbonate 500 mg calcium (1,250 mg) Tablet
500 mg PO DAILY
lidocaine 5 % Adhesive Patch,Medicated
1 patch TOPICAL DAILYPRN PRN (Reason: lower back, right leg)
levothyroxine [Synthroid] 150 mcg Tablet
300 mcg PO SUSA
Trelegy Ellipta 200-62.5-25 mcg Blister With Device
1 inh INHALATION R DAILY
Medical Marijuana Cream
1 applic topical HS
Discontinued
hydrocodone-acetaminophen 5-325 mg Tablet
1 tab PO BIDPRN PRN (Reason: severe pain)
Discharge Orders:
Discharge Patient (As Directed); Ordered 12/15/24
Ordered By: Prince De Leon
Discharge Date and Time
Print Language: ERITREAN
[2024-12-15 15:22] VITALS: BP 131/72
[2024-12-15] MEDS: LIPITOR 10 MG PO (17:09)
[2024-12-15 19:00] VITALS: BP 139/74
== END 2024-12-15 19:10 | DRG 522 ==
LOC: 2 SOUTH 11:56
PROVIDERS: Hospitalist; Specialist; Student in an Organized Health Care Education/Training Program; ADMITTING PHYSICIAN Internal Medicine; ATTENDING PHYSICIAN Internal Medicine; CONSULT PHYSICIAN Student in an Organized Health Care Education/Training Program; EMERGENCY PHYSICIAN Emergency Medicine; OTHER PHYSICIAN Specialist
PROC: 0SR90JA Replacement of Right Hip Joint with Synthetic Substitute, Uncemented, Open Approach (ICD-10-PCS; 2024-12-09)
DX: M84.451A Pathological fracture, right femur, initial encounter for fracture (principal); N39.0 Urinary tract infection, site not specified; E87.1 Hypo-osmolality and hyponatremia; T83.518A Infection and inflammatory reaction due to other urinary catheter, initial encounter; Z68.41 Body mass index [BMI] 40.0-44.9, adult; N17.9 Acute kidney failure, unspecified; Z85.038 Personal history of other malignant neoplasm of large intestine; M35.3 Polymyalgia rheumatica; E66.01 Morbid (severe) obesity due to excess calories; I48.0 Paroxysmal atrial fibrillation; Z79.01 Long term (current) use of anticoagulants; M51.369 Other intervertebral disc degeneration, lumbar region without mention of lumbar back pain or lower extremity pain; M50.30 Other cervical disc degeneration, unspecified cervical region; J44.89 Other specified chronic obstructive pulmonary disease; I10 Essential (primary) hypertension; E03.9 Hypothyroidism, unspecified; E78.00 Pure hypercholesterolemia, unspecified; F32.A Depression, unspecified; F41.9 Anxiety disorder, unspecified; Z96.653 Presence of artificial knee joint, bilateral; K59.03 Drug induced constipation; T40.605A Adverse effect of unspecified narcotics, initial encounter; T45.1X5A Adverse effect of antineoplastic and immunosuppressive drugs, initial encounter; G62.0 Drug-induced polyneuropathy; G89.29 Other chronic pain; I25.10 Atherosclerotic heart disease of native coronary artery without angina pectoris; M41.9 Scoliosis, unspecified; M54.30 Sciatica, unspecified side; Y84.6 Urinary catheterization as the cause of abnormal reaction of the patient, or of later complication, without mention of misadventure at the time of the procedure; Z79.890 Hormone replacement therapy; Z79.891 Long term (current) use of opiate analgesic; Z79.899 Other long term (current) drug therapy; Z87.440 Personal history of urinary (tract) infections; Z87.891 Personal history of nicotine dependence; Z88.0 Allergy status to penicillin; Z88.1 Allergy status to other antibiotic agents; Z95.0 Presence of cardiac pacemaker; Z95.2 Presence of prosthetic heart valve; Z11.52 Encounter for screening for COVID-19; Z98.1 Arthrodesis status
CPT/HCPCS: 88305; 88311; 71046; 72100; 72192; 73502; 73560; 74018; 80048; 81003; 81015; 83930; 83935; 84300; 85025; 85027; 86803; 86850; 86900; 86901; 87086; 87088; 87186; 87811; 93005; 93970; 94640; 96374; 96375; 97116; 97163; 97167; 97530; 97535; 99285; C1713; C1776

== ENCOUNTER → 2025-02-11 12:56 | Outpatient (REF) | payer MEDICARE, OTHER, SELFPAY | LOC: RCS 12:56 | PROVIDERS: ATTENDING PHYSICIAN Internal Medicine Cardiovascular Disease; FAMILY PHYSICIAN Family Medicine | DX: I48.0 Paroxysmal atrial fibrillation (principal); I95.9 Hypotension, unspecified | CPT/HCPCS: 93306 ==

== ENCOUNTER → 2025-03-24 14:04 | Outpatient (REF) | payer MEDICARE, OTHER, SELFPAY | LOC: RAD 14:04 | PROVIDERS: ATTENDING PHYSICIAN Nurse Practitioner Family | DX: M79.661 Pain in right lower leg (principal) | CPT/HCPCS: 93971 ==

== ENCOUNTER → 2025-04-14 14:45 | Outpatient (REF) | payer MEDICARE, OTHER, SELFPAY | LOC: RAD 14:45 | PROVIDERS: ATTENDING PHYSICIAN Internal Medicine Cardiovascular Disease; FAMILY PHYSICIAN Family Medicine | DX: I95.9 Hypotension, unspecified (principal); I48.0 Paroxysmal atrial fibrillation; I65.23 Occlusion and stenosis of bilateral carotid arteries | CPT/HCPCS: 93880 ==

== ENCOUNTER 2025-05-07 14:42 | Emergency (ER) | payer MEDICARE, OTHER, SELFPAY ==
[2025-05-07 14:43] VITALS: BP 136/64
[2025-05-07] MEDS: TYLENOL 650 MG PO (16:13)
--- NOTE | 2025-05-07 17:42 | ED.GENMED ---
History of Present Illness
General
Chief Complaint: Fall
Source: patient and family (Son at bedside)
Exam Limitations: none
Time Seen by Provider: 05/07/25 15:33
Nursing documentation reviewed up to this point in time: agreed with
History of Present Illness
History of Present Illness:
Patient is a 79-year-old female with atrial fibrillation on Eliquis who presents the emergency department after mechanical fall at home. Patient states that she has been unsteady on her feet after a recent hip replacement and her friend was
assisting her to step down to the garage when she lost her footing and fell. She apparently fell forward striking her head on a shelf and then onto her left side. She landed partially on her friend who also unfortunately fell and did not strike
her head on the ground.
Patient states they were unable to lift her from the ground prompting call to 911. There was no loss of conscious however patient does have a headache. She initially had mild dizziness however this is since resolved. She denies any changes in her
vision or hearing. She denies any neck pain or back pain. No numbness/tingling or weakness in extremities. No bowel/bladder incontinence. No saddle paresthesias. No chest pain, shortness of breath, abdominal pain, or pain in extremities.
Patient is anticoagulated on Eliquis for atrial fibrillation.
Past History
Past History
ED Past Medical History: Arrthythmia (Atrial fibrillation), Asthma, CAD, Cancer (Colon cancer 2007), HTN, Other (Neuropathy from chemotherapy, left hip avascular necrosis, constipation, dropped bladder, ambulatory dysfunction, skin cancer,
depression) and Other (Cervical as well as lumbar DJD, scoliosis, sciatica); Negative Hypercholesterolemia
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
Bilateral total knee replacements) and Other (Surgery for deviated septum)
Social History
Tobacco: Non-smoker
Alcohol: None
Personal:
Living: with family
Employment: Retired
Family History
Family History: Other (Noncontributory)
Review of Systems
Review of Systems
Allergies reviewed?: Yes
All Other Systems: ROS reviewed and negative except as documented in HPI and ROS
Phy Exam
Physical Exam
Physical Exam:
GENERAL: No acute distress
HEENT: Minor contusion to left frontal scalp, extraocular muscles intact, no signs of entrapment, dentition intact, no other obvious trauma
NECK: no midline tenderness, normal range of motion, no other obvious trauma
BACK: no midline tenderness, no other obvious trauma
CHEST: no tenderness, no flail segment, no subcutaneous emphysema, no other obvious trauma
LUNGS: clear to auscultation bilaterally
CARDIOVASCULAR: regular rate and rhythm
ABDOMEN: soft, non-tender, no masses, no other obvious trauma
PELVIS: stable, no obvious injury
EXTREMITIES: moving all extremities, distal pulses intact, no other obvious trauma
NEUROLOGIC: awake, alert x 3, no focal deficits
Course
Orders/Labs/Results
Orders:
Orders
05/07/25 14:48
CT Head W/o Iv Contrast Urgent
Comment: pt on bld thinner for afib
Reason For Exam: fell hit head on patternmaker metal bench
05/07/25 16:05
Acetaminophen [Tylenol] 650 mg PO NOW STA
Vital Signs
Initial and Last Documented VS:
Initial Vital Signs
Temp Pulse Resp BP Pulse Ox
98.2 F 66 16 136/64 98
05/07/25 14:43 05/07/25 14:43 05/07/25 14:43 05/07/25 14:43 05/07/25 14:43
Last Documented Vital Signs
Temp Pulse Resp BP Pulse Ox
98.2 F 66 16 136/64 98
05/07/25 14:43 05/07/25 14:43 05/07/25 14:43 05/07/25 14:43 05/07/25 17:44
MDM/Problems Addressed
Differential Diagnosis Includes:
Not limited to: Contusion, concussion, intracranial hemorrhage, etc.
MDM/Problems Addressed:
79-year-old female on Eliquis presents after a mechanical fall with head strike. She denies loss of consciousness and reports only a mild headache without other neurologic symptoms. She denies neck pain, back pain, or extremity pain. On arrival,
vital signs are stable. On examination, the patient is well-appearing and in no distress. There is a mild contusion to the left frontal scalp without laceration. Neurologic exam is normal with no focal deficits. No midline cervical spine tenderness
or pain with range of motion. No evidence of traumatic injury to the extremities.
Given her anticoagulation use and mechanism of injury, a CT scan of the head was obtained and revealed no acute intracranial hemorrhage or other acute findings. No indication for cervical spine imaging based on clinical assessment.
The patient remained hemodynamically stable and neurologically intact during her ED stay. Given reassuring evaluation and negative imaging, she is safe for discharge home. Return precautions were reviewed, including worsening headache, vomiting,
confusion, or new neurologic deficits. She will follow up closely with her primary care provider. The patient and family were comfortable with the plan and verbalized understanding.
Chronic conditions affecting care:
Atrial fibrillation on Eliquis
Acute Exacerbation and/or Progression of Chronic Illness:
N/A
*Radiology
Radiology exam reviewed: radiology read reviewed
*Pulse Oximetry
SaO2: 98
Oxygen Mode of Delivery: Room air
Patient hypoxic: no
*EKG
Interpreted by ED Provider?: NA
*Transition Rn Interpretation
Rate: Transition Rn- N/A
*Critical Care Note
Total Time (30-74mins, 75-104mins- exclusive of procedures): Not Applicable
ED Attending Note
-
Portions of this chart may have been created with voice recognition software.� Occasional wrong word or��sound alike� substitutions may have occurred due to the inherent limitations of voice recognition software.
Discharge Plan
Departure
Patient Disposition: Home (Routine Discharge)
Date of Disposition: 05/07/25
Time of Disposition: 16:05
Patient with high blood pressure during this ER visit?: Yes
Condition: Good
Discharge Problem:
Head injury
Instructions: Head Injury in Adults (DC), BLOOD PRESSURE
Prescriptions:
No Action
pregabalin 75 MG capsule
75 mg PO TID
lorazepam 1 MG tablet
1 mg PO HS
pregabalin 50 MG capsule
50 mg PO BID
levocetirizine [Xyzal] 5 MG tablet
5 mg PO HS
montelukast 10 MG tablet
10 mg PO HS
Eliquis 5 MG tablet
5 mg PO BID
levothyroxine 150 MCG tablet
150 mcg PO MOTUWETHFR
albuterol sulfate 1 PUFF HFA aerosol inhaler
2 puff inhalation R Q4HPRN PRN (Reason: sob)
duloxetine 60 MG capsule,delayed release(DR/EC)
90 mg PO DAILY
aripiprazole 2 MG tablet
2 mg PO HS
lisinopril 5 mg Tablet
5 mg PO DAILY
Linzess 72 mcg Capsule
72 mcg PO DAILYPRN PRN (Reason: constipation)
amlodipine 5 mg Tablet
2.5 mg PO DAILY
furosemide 40 mg Tablet
40 mg PO DAILY
tizanidine 4 mg Tablet
4 mg PO HS
amiodarone [Pacerone] 200 MG tablet
100 mg PO DAILY
simvastatin [Zocor] 10 mg Tablet
10 mg PO QPM
cyanocobalamin (vitamin B-12) 1,000 mcg Tablet
1,000 mcg PO DAILY
smesmishgv-fptasuqpqbrhd-qjum 50-325-40 mg tablet
1 tab PO Q6HPRN PRN (Reason: headaches)
calcium carbonate 500 mg calcium (1,250 mg) Tablet
500 mg PO DAILY
lidocaine 5 % Adhesive Patch,Medicated
1 patch TOPICAL DAILYPRN PRN (Reason: lower back, right leg)
levothyroxine [Synthroid] 150 mcg Tablet
300 mcg PO SUSA
Trelegy Ellipta 200-62.5-25 mcg Blister With Device
1 inh INHALATION R DAILY
Medical Marijuana Cream
1 applic topical HS
nystatin 100,000 unit/mL Suspension
5 ml PO QID 7 Days Qty: 140 0RF
oxycodone 5 mg Tablet
5 mg PO Q4HPRN PRN (Reason: moderate pain) Qty: 15 0RF
Referrals:
Maria C Tolentino MD [[facility], [facility]] - Follow up in 5-7 days
Activity Restrictions/Additional Instructions:
RETURN TO THE EMERGENCY DEPARTMENT WITH ANY SEVERE HEADACHE OR NECK PAIN, PERSISTENT DIZZINESS, INTRACTABLE NAUSEA/VOMITING, VISUAL CHANGES, CHANGES IN MENTAL STATUS, WORSENING IN CURRENT SYMPTOMS, OR ANY OTHER CONCERNS
- As discussed, the CT scan of your head showed no acute abnormalities.
- Please continue to apply ice and take Tylenol as needed for discomfort.
- Continue to take all medications as prescribed.
- Follow-up with primary care for further evaluation/management to ensure that your symptoms are improved
Monitor your symptoms closely and return to the emergency department with any acute worsening/new symptoms or any other concerns
Interventions
Interventions:
*Risk Screen - Suicide Last Done: 05/07/25 14:43
*Neglect/Abuse Screening Last Done: 05/07/25 14:43
*ED- Fall Risk Assessment Last Done: 05/07/25 15:59
*Nursing Disposition Last Done: 05/07/25 16:22
ED- Neurological Assessment Last Done: 05/07/25 16:00
ED-Skin Assessment Last Done: 05/07/25 16:01
Discharge Date and Time
Discharge Date/Time: 05/07/25 16:23
Print Language: MONGOLIAN
== END 2025-05-07 16:23 | disposition home or self-care (01) ==
LOC: EMR 14:42
PROVIDERS: EMERGENCY PHYSICIAN Student in an Organized Health Care Education/Training Program; FAMILY PHYSICIAN Family Medicine
DX: S09.90XA Unspecified injury of head, initial encounter (principal); I25.10 Atherosclerotic heart disease of native coronary artery without angina pectoris; I48.91 Unspecified atrial fibrillation; I10 Essential (primary) hypertension; J45.909 Unspecified asthma, uncomplicated; F32.A Depression, unspecified; M41.9 Scoliosis, unspecified; M47.812 Spondylosis without myelopathy or radiculopathy, cervical region; M47.816 Spondylosis without myelopathy or radiculopathy, lumbar region; Z79.01 Long term (current) use of anticoagulants; Z85.038 Personal history of other malignant neoplasm of large intestine; Z85.828 Personal history of other malignant neoplasm of skin; Z96.642 Presence of left artificial hip joint; Z96.653 Presence of artificial knee joint, bilateral; W19.XXXA Unspecified fall, initial encounter; W22.09XA Striking against other stationary object, initial encounter; Y92.008 Other place in unspecified non-institutional (private) residence as the place of occurrence of the external cause
CPT/HCPCS: 99284; 70450

== ENCOUNTER 2025-05-13 14:26 | Outpatient (RCR) | payer MEDICARE, OTHER, SELFPAY | END 2025-05-13 23:59 | disposition home or self-care (01) | LOC: RPT 14:26 | PROVIDERS: ATTENDING PHYSICIAN Physician Assistant Surgical; FAMILY PHYSICIAN Family Medicine | DX: M25.551 Pain in right hip (principal); M25.561 Pain in right knee; Z73.6 Limitation of activities due to disability; M62.81 Muscle weakness (generalized); R26.2 Difficulty in walking, not elsewhere classified; R26.89 Other abnormalities of gait and mobility; Z96.642 Presence of left artificial hip joint; Z96.651 Presence of right artificial knee joint | CPT/HCPCS: 97110; 97163 ==

== ENCOUNTER 2025-05-15 06:15 | Day surgery (SDC) | payer MEDICARE, OTHER, SELFPAY | END 2025-05-15 09:02 | disposition home or self-care (01) | LOC: GI 06:15 | PROVIDERS: ATTENDING PHYSICIAN Specialist | DX: Z12.11 Encounter for screening for malignant neoplasm of colon (principal); D12.3 Benign neoplasm of transverse colon; Z85.038 Personal history of other malignant neoplasm of large intestine; K63.5 Polyp of colon; Z98.0 Intestinal bypass and anastomosis status | CPT/HCPCS: 45385; 45380; 88305 ==

== ENCOUNTER → 2025-06-01 12:58 | Outpatient (REF) | payer MEDICARE, OTHER, SELFPAY | LOC: WDC 12:58 | PROVIDERS: ATTENDING PHYSICIAN Obstetrics & Gynecology Gynecology; FAMILY PHYSICIAN Family Medicine | DX: Z12.31 Encounter for screening mammogram for malignant neoplasm of breast (principal) | CPT/HCPCS: 77063; 77067 ==

== ENCOUNTER 2025-06-10 07:13 | Outpatient (RCR) | payer MEDICARE, OTHER, SELFPAY | END 2025-06-10 23:59 | disposition home or self-care (01) | LOC: RPT 07:13 | PROVIDERS: ATTENDING PHYSICIAN Physician Assistant Surgical; FAMILY PHYSICIAN Family Medicine | DX: M25.551 Pain in right hip (principal); M25.561 Pain in right knee; Z73.6 Limitation of activities due to disability; M62.81 Muscle weakness (generalized); R26.2 Difficulty in walking, not elsewhere classified; R26.89 Other abnormalities of gait and mobility; Z96.642 Presence of left artificial hip joint; Z96.651 Presence of right artificial knee joint | CPT/HCPCS: 97010; 97110; 97112; 97530; 97535 ==

== ENCOUNTER 2025-07-03 08:28 | Outpatient (RCR) | payer MEDICARE, OTHER, SELFPAY | END 2025-07-07 23:59 | disposition home or self-care (01) | LOC: RPT 08:28 | PROVIDERS: ATTENDING PHYSICIAN Physician Assistant Surgical; FAMILY PHYSICIAN Family Medicine | DX: M25.551 Pain in right hip (principal); M25.561 Pain in right knee; Z73.6 Limitation of activities due to disability; M62.81 Muscle weakness (generalized); R26.2 Difficulty in walking, not elsewhere classified; R26.89 Other abnormalities of gait and mobility; Z96.642 Presence of left artificial hip joint; Z96.651 Presence of right artificial knee joint | CPT/HCPCS: 97010; 97110; 97112; 97116; 97530 ==